=== PATIENT | male | born 1955 | race Caucasian/White ===

== ENCOUNTER 2018-05-09 19:54 | Inpatient (IN) | payer OTHER ==
[2018-05-09] MEDS ORDERED: ONDANSETRON 4 MG INJ IV (23:00)
[2018-05-09] MEDS: DEXAMETHASONE 4 MG/ML 1 ML INJ IV (23:46)
[2018-05-10 05:14] LABS: ADD MAN DIFF? NO
[2018-05-10 05:15] LABS: WHITE BLOOD COUNT 11.6 10^3/ul (4.8-10.8)
[2018-05-10 05:15] LABS: BASOPHILS % 0.2 % (0.0-2.0); EOSINOPHILS % 0.1 % (0.0-7.0); HEMATOCRIT 31.8 % (42.0-52.0); HEMOGLOBIN 9.7 g/dl (14.0-18.0); LYMPHOCYTES # 0.9 10^3/ul (0.8-2.9); LYMPHOCYTES % 7.5 % (15.0-51.0); MEAN CORPUSCULAR HEMOGLOBIN 23.6 pg (29.0-33.0); MEAN CORPUSCULAR HGB CONC 30.5 g/dl (32.0-37.0); MEAN CORPUSCULAR VOLUME 77.4 fl (82.0-101.0); MEAN PLATELET VOLUME 8.7 fl (7.4-10.4); MONOCYTE # 0.2 10^3/ul (0.3-0.9); MONOCYTES % 1.3 % (0.0-11.0); NEUTROPHIL # 10.4 10^3/ul (1.6-7.5); NEUTROPHILS % 89.7 % (39.0-77.0); PLATELET COUNT 452 10^3/UL (140-415); RED BLOOD COUNT 4.11 10^6/ul (4.70-6.10); RED CELL DISTRIBUTION WIDTH 18.1 % (11.5-14.5)
[2018-05-10] MEDS: PANTOPRAZOLE (EC) 40 MG TAB PO (05:29)
[2018-05-10] MEDS: DEXAMETHASONE 4 MG/ML 1 ML INJ IV ×4 (05:29→23:06)
[2018-05-10 05:36] LABS: PARTIAL THROMBOPLASTIN TIME 30.7 Sec (23.0-35.0)
[2018-05-10 05:44] LABS: SODIUM 141 mmol/L (135-144)
[2018-05-10 05:54] LABS: ALANINE AMINOTRANSFERASE 27 IU/L (13-69); ALBUMIN 3.4 g/dl (3.3-4.9); ALBUMIN/GLOBULIN RATIO 0.85; ALKALINE PHOSPHATASE 182 IU/L (42-121); ANION GAP 12 (8-16); ASPARTATE AMINO TRANSFERASE 23 IU/L (15-46); BILIRUBIN,INDIRECT 0.2 mg/dl (0-1.1); BILIRUBIN,TOTAL 0.2 mg/dl (0.2-1.3); BLOOD UREA NITROGEN 34 mg/dl (7-20); CALCIUM 9.7 mg/dl (8.4-10.2); CARBON DIOXIDE 25 mmol/L (21-31); CHLORIDE 108 mmol/L (97-110); CREATININE 1.92 mg/dl (0.61-1.24); GLUCOSE 162 mg/dl (70-220); POTASSIUM 4.3 mmol/L (3.5-5.1); TOTAL PROTEIN 7.4 g/dl (6.1-8.1)
[2018-05-10] MEDS: morphine 2 MG INJ IV ×2 (07:19→23:07)
[2018-05-10] MEDS: METOPROLOL (XL) 25 MG TAB PO ×2 (08:33→21:20)
[2018-05-10] MEDS: AMLODIPINE 10 MG TAB PO (08:33)
[2018-05-10] MEDS ORDERED: ACETAMINOPHEN 325 MG TAB PO (11:00)
[2018-05-10] MEDS: SOD CHLORIDE 0.45% 1,000 ML IV (12:12)
[2018-05-10] MEDS: HYDROCODONE/APAP (5/325) TAB PO ×2 (12:14→21:19)
[2018-05-10 13:14] LABS: SODIUM,URINE RANDOM 75 mmol/L (30-90)
[2018-05-10 13:18] LABS: CREATININE,URINE RANDOM 45.22 mg/dl (20-370); PROTEIN/CREAT RATIO 0.99 RATIO
[2018-05-11 05:04] LABS: ADD MAN DIFF? NO
[2018-05-11 05:06] LABS: BASOPHILS % 0.1 % (0.0-2.0); HEMOGLOBIN 9.2 g/dl (14.0-18.0); LYMPHOCYTES # 1.3 10^3/ul (0.8-2.9); LYMPHOCYTES % 7.2 % (15.0-51.0); MEAN CORPUSCULAR HEMOGLOBIN 23.7 pg (29.0-33.0); MEAN CORPUSCULAR HGB CONC 30.7 g/dl (32.0-37.0); MEAN CORPUSCULAR VOLUME 77.1 fl (82.0-101.0); MEAN PLATELET VOLUME 8.8 fl (7.4-10.4); MONOCYTE # 0.5 10^3/ul (0.3-0.9); MONOCYTES % 2.4 % (0.0-11.0); NEUTROPHIL # 16.5 10^3/ul (1.6-7.5); NEUTROPHILS % 88.5 % (39.0-77.0); NUCLEATED RED BLOOD CELLS% 0.1 /100WBC (0.0-0.0); PLATELET COUNT 438 10^3/UL (140-415); RED BLOOD COUNT 3.89 10^6/ul (4.70-6.10); RED CELL DISTRIBUTION WIDTH 18.3 % (11.5-14.5)
[2018-05-11 05:06] LABS: WHITE BLOOD COUNT 18.6 10^3/ul (4.8-10.8)
[2018-05-11] MEDS: SOD CHLORIDE 0.45% 1,000 ML IV ×2 (05:12→21:38)
[2018-05-11] MEDS: DEXAMETHASONE 4 MG/ML 1 ML INJ IV ×3 (05:13→17:35)
[2018-05-11] MEDS: PANTOPRAZOLE (EC) 40 MG TAB PO (05:13)
[2018-05-11] MEDS: HYDROCODONE/APAP (5/325) TAB PO ×3 (05:14→21:40)
[2018-05-11 05:23] LABS: INR 1.02; PROTIME 13.5 Sec (11.9-14.9); PT RATIO 1.1
[2018-05-11 05:25] LABS: URIC ACID 7.1 mg/dl (3.1-7.9)
[2018-05-11 05:28] LABS: PARTIAL THROMBOPLASTIN TIME 26.2 Sec (23.0-35.0)
[2018-05-11 05:33] LABS: CREATINE KINASE < 20 IU/L (23-200)
[2018-05-11 05:37] LABS: ANION GAP 14 (8-16); BLOOD UREA NITROGEN 41 mg/dl (7-20); CALCIUM 9.6 mg/dl (8.4-10.2); CARBON DIOXIDE 24 mmol/L (21-31); CHLORIDE 105 mmol/L (97-110); CREATININE 1.62 mg/dl (0.61-1.24); GLUCOSE 146 mg/dl (70-220); POTASSIUM 4.5 mmol/L (3.5-5.1); SODIUM 138 mmol/L (135-144)
[2018-05-11] MEDS: METOPROLOL (XL) 25 MG TAB PO ×2 (09:22→21:33)
[2018-05-11] MEDS: AMLODIPINE 10 MG TAB PO (09:22)
[2018-05-12] MEDS: DEXAMETHASONE 4 MG/ML 1 ML INJ IV ×5 (00:22→23:00)
[2018-05-12] MEDS: morphine 2 MG INJ IV ×2 (00:22→23:03)
[2018-05-12 05:26] LABS: ADD MAN DIFF? NO
[2018-05-12 05:32] LABS: BASOPHILS % 0.1 % (0.0-2.0); HEMATOCRIT 30.4 % (42.0-52.0); HEMOGLOBIN 9.4 g/dl (14.0-18.0); LYMPHOCYTES # 1.3 10^3/ul (0.8-2.9); MEAN CORPUSCULAR HEMOGLOBIN 23.9 pg (29.0-33.0); MEAN CORPUSCULAR HGB CONC 30.9 g/dl (32.0-37.0); MEAN CORPUSCULAR VOLUME 77.2 fl (82.0-101.0); MEAN PLATELET VOLUME 9.1 fl (7.4-10.4); MONOCYTE # 0.4 10^3/ul (0.3-0.9); MONOCYTES % 2.6 % (0.0-11.0); NEUTROPHIL # 12.3 10^3/ul (1.6-7.5); NEUTROPHILS % 85.4 % (39.0-77.0); NUCLEATED RED BLOOD CELLS # 0.1 10^3/ul (0.0-0.0); NUCLEATED RED BLOOD CELLS% 0.6 /100WBC (0.0-0.0); PLATELET COUNT 477 10^3/UL (140-415); RED BLOOD COUNT 3.94 10^6/ul (4.70-6.10)
[2018-05-12 05:32] LABS: WHITE BLOOD COUNT 14.4 10^3/ul (4.8-10.8)
[2018-05-12 05:42] LABS: ANION GAP 13 (8-16); BLOOD UREA NITROGEN 51 mg/dl (7-20); CALCIUM 9.6 mg/dl (8.4-10.2); CARBON DIOXIDE 22 mmol/L (21-31); CHLORIDE 105 mmol/L (97-110); CREATININE 1.57 mg/dl (0.61-1.24); GLUCOSE 156 mg/dl (70-220); POTASSIUM 4.4 mmol/L (3.5-5.1); SODIUM 136 mmol/L (135-144)
[2018-05-12] MEDS: PANTOPRAZOLE (EC) 40 MG TAB PO (06:08)
[2018-05-12] MEDS: HYDROCODONE/APAP (5/325) TAB PO ×3 (06:13→21:50)
[2018-05-12] MEDS: AMLODIPINE 10 MG TAB PO (09:04)
[2018-05-12] MEDS: METOPROLOL (XL) 25 MG TAB PO ×2 (09:05→21:50)
[2018-05-12] MEDS: SOD CHLORIDE 0.45% 1,000 ML IV (14:57)
[2018-05-13] MEDS: morphine 2 MG INJ IV ×3 (01:32→11:39)
[2018-05-13 04:52] LABS: ADD MAN DIFF? NO
[2018-05-13 04:56] LABS: WHITE BLOOD COUNT 15.4 10^3/ul (4.8-10.8)
[2018-05-13 04:56] LABS: ABNORMAL IP MESSAGE 1; BASOPHILS % 0.3 % (0.0-2.0); HEMATOCRIT 30.5 % (42.0-52.0); HEMOGLOBIN 9.7 g/dl (14.0-18.0); LYMPHOCYTES # 1.6 10^3/ul (0.8-2.9); LYMPHOCYTES % 10.6 % (15.0-51.0); MEAN CORPUSCULAR HEMOGLOBIN 24.2 pg (29.0-33.0); MEAN CORPUSCULAR HGB CONC 31.8 g/dl (32.0-37.0); MEAN CORPUSCULAR VOLUME 76.1 fl (82.0-101.0); MEAN PLATELET VOLUME 8.8 fl (7.4-10.4); MONOCYTE # 0.7 10^3/ul (0.3-0.9); MONOCYTES % 4.6 % (0.0-11.0); NEUTROPHIL # 12.1 10^3/ul (1.6-7.5); NEUTROPHILS % 78.4 % (39.0-77.0); NUCLEATED RED BLOOD CELLS # 0.2 10^3/ul (0.0-0.0); PLATELET COUNT 451 10^3/UL (140-415); POSITIVE DIFF @See below; RED BLOOD COUNT 4.01 10^6/ul (4.70-6.10); RED CELL DISTRIBUTION WIDTH 17.4 % (11.5-14.5)
[2018-05-13 05:23] LABS: ANION GAP 14 (8-16); BLOOD UREA NITROGEN 58 mg/dl (7-20); CALCIUM 9.2 mg/dl (8.4-10.2); CARBON DIOXIDE 23 mmol/L (21-31); CHLORIDE 103 mmol/L (97-110); CREATININE 1.56 mg/dl (0.61-1.24); GLUCOSE 194 mg/dl (70-220); POTASSIUM 4.5 mmol/L (3.5-5.1); SODIUM 135 mmol/L (135-144)
[2018-05-13] MEDS: DEXAMETHASONE 4 MG/ML 1 ML INJ IV ×4 (05:29→23:42)
[2018-05-13] MEDS: PANTOPRAZOLE (EC) 40 MG TAB PO (05:31)
[2018-05-13] MEDS: SOD CHLORIDE 0.45% 1,000 ML IV (05:31)
[2018-05-13] MEDS: HYDROCODONE/APAP (5/325) TAB PO ×3 (05:31→21:41)
[2018-05-13] MEDS ORDERED: HEPARIN 1000 UNITS/ML 10 ML INJ ×2 (06:56→06:57)
[2018-05-13] MEDS: CEFAZOLIN 1 GM INJ (06:56)
[2018-05-13] MEDS: SURGIFOAM POWDER 1 GM KIT (06:56)
[2018-05-13] MEDS: THROMBIN 5000 UNIT VIAL (06:56)
[2018-05-13] MEDS: GELATIN SIZE 100 SPONGE (06:57)
[2018-05-13] MEDS ORDERED: DEXAMETHASONE 4 MG/ML 1 ML INJ (07:00)
[2018-05-13] MEDS ORDERED: ONDANSETRON 4 MG INJ (07:00)
[2018-05-13] MEDS ORDERED: PROPOFOL 20 ML (07:44)
[2018-05-13] MEDS ORDERED: EPHEDrine SULFATE 50 MG/5 ML SYG (07:48)
[2018-05-13] MEDS ORDERED: ROCURONIUM 50 MG INJ (07:48)
[2018-05-13] MEDS ORDERED: LIDOCAINE 2% (SDV) 5 ML INJ (07:48)
[2018-05-13] MEDS ORDERED: CEFAZOLIN 1 GM/50 ML (PMX) 50 ML IVPB (08:30)
[2018-05-13] MEDS ORDERED: NALOXONE (0.4 MG/ML) INJ IV (08:30)
[2018-05-13] MEDS ORDERED: NACL 0.9% 3 ML SYG IV (08:30)
[2018-05-13] MEDS ORDERED: HYDROmorphONE 0.2 MG/ML PCA IV (08:30)
[2018-05-13] MEDS ORDERED: HYDROCODONE/APAP (5/325) TAB PO ×2 (08:30→14:00)
[2018-05-13] MEDS ORDERED: THROMBIN 5000 UNIT VIAL ×2 (09:07→09:12)
[2018-05-13] MEDS ORDERED: GELATIN SIZE 100 SPONGE (09:12)
[2018-05-13] MEDS ORDERED: SUGAMMADEX SODIUM 200 MG/2 ML VIAL IV (09:22)
[2018-05-13] MEDS ORDERED: CEFAZOLIN 1 GM INJ (09:35)
[2018-05-13] MEDS ORDERED: DIPHENHYDRAMINE 50 MG INJ IV (10:00)
[2018-05-13] MEDS ORDERED: OXYCODONE/ACETAMINOPHEN (5/325) TAB PO ×2 (10:00)
[2018-05-13] MEDS ORDERED: METOCLOPRAMIDE 10 MG INJ IV (10:00)
[2018-05-13] MEDS ORDERED: HYDROmorphONE 1 MG/5 ML IV SYRINGE IV ×3 (10:00)
[2018-05-13] MEDS ORDERED: KETOROLAC 30 MG INJ IV (10:00)
[2018-05-13] MEDS ORDERED: ALBUTEROL 0.083% (NEB) 2.5 MG/3 ML AMP HHN (10:00)
[2018-05-13] MEDS ORDERED: hydrALAzine 20 MG INJ IV (10:00)
[2018-05-13] MEDS ORDERED: MEPERIDINE 25 MG INJ IV (10:00)
[2018-05-13] MEDS ORDERED: EPHEDrine SULFATE 50 MG/5 ML SYG IV (10:00)
[2018-05-13] MEDS ORDERED: FENTAnyl 50 MCG/ML VIAL IV ×3 (10:00)
[2018-05-13] MEDS ORDERED: LABETALOL HCL 20MG INJ IV (10:00)
[2018-05-13] MEDS ORDERED: ONDANSETRON 4 MG INJ IV (10:00)
[2018-05-13] MEDS: NS + KCL 20 MEQ 1,000 ML IV ×3 (10:58→21:43)
[2018-05-13] MEDS: AMLODIPINE 10 MG TAB PO (11:38)
[2018-05-13] MEDS: METOPROLOL (XL) 25 MG TAB PO ×2 (11:38→21:41)
[2018-05-14] MEDS: morphine 2 MG INJ IV ×2 (00:53→23:30)
[2018-05-14 05:01] LABS: ADD MAN DIFF? NO
[2018-05-14 05:10] LABS: WHITE BLOOD COUNT 17.6 10^3/ul (4.8-10.8)
[2018-05-14 05:10] LABS: ABNORMAL IP MESSAGE 1; BASOPHILS % 0.2 % (0.0-2.0); HEMATOCRIT 30.6 % (42.0-52.0); HEMOGLOBIN 9.4 g/dl (14.0-18.0); LYMPHOCYTES # 1.5 10^3/ul (0.8-2.9); LYMPHOCYTES % 8.2 % (15.0-51.0); MEAN CORPUSCULAR HEMOGLOBIN 23.6 pg (29.0-33.0); MEAN CORPUSCULAR HGB CONC 30.7 g/dl (32.0-37.0); MEAN CORPUSCULAR VOLUME 76.7 fl (82.0-101.0); MEAN PLATELET VOLUME 8.7 fl (7.4-10.4); MONOCYTE # 1.2 10^3/ul (0.3-0.9); MONOCYTES % 6.6 % (0.0-11.0); NEUTROPHIL # 14.1 10^3/ul (1.6-7.5); NEUTROPHILS % 79.8 % (39.0-77.0); NUCLEATED RED BLOOD CELLS # 0.2 10^3/ul (0.0-0.0); NUCLEATED RED BLOOD CELLS% 1.3 /100WBC (0.0-0.0); PLATELET COUNT 445 10^3/UL (140-415); POSITIVE DIFF @See below; RED BLOOD COUNT 3.99 10^6/ul (4.70-6.10); RED CELL DISTRIBUTION WIDTH 17.7 % (11.5-14.5)
[2018-05-14 05:34] LABS: ANION GAP 10 (8-16); BLOOD UREA NITROGEN 47 mg/dl (7-20); CALCIUM 8.8 mg/dl (8.4-10.2); CARBON DIOXIDE 24 mmol/L (21-31); CHLORIDE 108 mmol/L (97-110); CREATININE 1.36 mg/dl (0.61-1.24); GLUCOSE 162 mg/dl (70-220); POTASSIUM 4.9 mmol/L (3.5-5.1); SODIUM 137 mmol/L (135-144)
[2018-05-14] MEDS: PANTOPRAZOLE (EC) 40 MG TAB PO (05:50)
[2018-05-14] MEDS: HYDROCODONE/APAP (5/325) TAB PO ×3 (05:50→21:37)
[2018-05-14] MEDS: DEXAMETHASONE 4 MG/ML 1 ML INJ IV ×3 (05:50→18:46)
[2018-05-14] MEDS: NS + KCL 20 MEQ 1,000 ML IV ×2 (09:11→18:46)
[2018-05-14] MEDS: METOPROLOL (XL) 25 MG TAB PO ×2 (09:13→21:39)
[2018-05-14] MEDS: AMLODIPINE 10 MG TAB PO (09:13)
[2018-05-15] MEDS: DEXAMETHASONE 4 MG/ML 1 ML INJ IV ×4 (00:03→18:00)
[2018-05-15] MEDS: morphine 2 MG INJ IV ×2 (04:17→19:25)
[2018-05-15] MEDS: NS + KCL 20 MEQ 1,000 ML IV ×3 (05:02→20:24)
[2018-05-15 05:06] LABS: WHITE BLOOD COUNT 22.3 10^3/ul (4.8-10.8)
[2018-05-15 05:06] LABS: ABNORMAL IP MESSAGE 1; HEMATOCRIT 30.7 % (42.0-52.0); HEMOGLOBIN 9.5 g/dl (14.0-18.0); MEAN CORPUSCULAR HEMOGLOBIN 23.7 pg (29.0-33.0); MEAN CORPUSCULAR HGB CONC 30.9 g/dl (32.0-37.0); MEAN CORPUSCULAR VOLUME 76.6 fl (82.0-101.0); MEAN PLATELET VOLUME 8.8 fl (7.4-10.4); PLATELET COUNT 449 10^3/UL (140-415); POSITIVE DIFF @See below; RED BLOOD COUNT 4.01 10^6/ul (4.70-6.10); RED CELL DISTRIBUTION WIDTH 18.2 % (11.5-14.5)
[2018-05-15] MEDS: PANTOPRAZOLE (EC) 40 MG TAB PO (05:33)
[2018-05-15] MEDS: HYDROCODONE/APAP (5/325) TAB PO ×3 (05:33→21:42)
[2018-05-15 05:44] LABS: ANION GAP 11 (8-16); BLOOD UREA NITROGEN 48 mg/dl (7-20); CALCIUM 8.6 mg/dl (8.4-10.2); CARBON DIOXIDE 23 mmol/L (21-31); CHLORIDE 106 mmol/L (97-110); CREATININE 1.26 mg/dl (0.61-1.24); GLUCOSE 205 mg/dl (70-220); POTASSIUM 4.9 mmol/L (3.5-5.1); SODIUM 135 mmol/L (135-144)
[2018-05-15 05:45] LABS: ADD MAN DIFF? YES
[2018-05-15] MEDS ORDERED: THROMBIN 5000 UNIT VIAL (06:40)
[2018-05-15] MEDS ORDERED: GELATIN SIZE 100 SPONGE (06:40)
[2018-05-15 06:41] LABS: ANISOCYTOSIS 1+ (0-0); BAND NEUTROPHILS % (M) 9 % (0-4); ERYTHROBLAST% (NRBC) (M) 2 % (0-0); LYMPHOCYTES #M 1.3 10^3/ul (0.8-2.9); LYMPHOCYTES % (M) 6 % (15-51); MICROCYTOSIS 1+ (0-0); MONOCYTE #M 1.3 10^3/ul (0.3-0.9); MONOCYTES % (M) 6 % (0-11); MYELOCYTES #M 0.8 10^3/ul (0.0-0.0); MYELOCYTES % (M) 4 % (0-0); PLATELET ESTIMATE NORMAL; POIKILOCYTOSIS 1+ (0-0); POLYCHROMASIA 2+ (0-0); SEG NEUT #M 17.2 10^3/ul (1.6-7.5); SEGMENTED NEUTROPHILS (M) % 75 % (39-77); SMUDGE%M 18 % (0-0); SPHEROCYTES 1+ (0-0)
[2018-05-15] MEDS: ROPIVACAINE 0.5 % 30 ML VIAL ×2 (06:41→12:46)
[2018-05-15] MEDS: POLYMYXIN/BACITRACIN 1L IRRIG (06:41)
[2018-05-15] MEDS ORDERED: DEXAMETHASONE 4 MG/ML 1 ML INJ (07:00)
[2018-05-15] MEDS ORDERED: ONDANSETRON 4 MG INJ (07:00)
[2018-05-15] MEDS ORDERED: ROCURONIUM 50 MG INJ (07:00)
[2018-05-15] MEDS ORDERED: CEFAZOLIN 1 GM INJ (07:00)
[2018-05-15] MEDS ORDERED: LIDOCAINE 2% (SDV) 5 ML INJ (07:00)
[2018-05-15] MEDS ORDERED: PROPOFOL 20 ML (07:39)
[2018-05-15] MEDS: AMLODIPINE 10 MG TAB PO (09:00)
[2018-05-15] MEDS: METOPROLOL (XL) 25 MG TAB PO ×2 (09:00→21:41)
[2018-05-15] MEDS ORDERED: morphine 10 MG INJ (10:54)
[2018-05-15] MEDS ORDERED: PHENYLephrine (100 MCG/ML) 5ML SYG (12:39)
[2018-05-15] MEDS ORDERED: SUGAMMADEX SODIUM 200 MG/2 ML VIAL IV (12:56)
[2018-05-15] MEDS ORDERED: DIPHENHYDRAMINE 50 MG INJ IV (13:30)
[2018-05-15] MEDS ORDERED: HYDROmorphONE 0.5 MG/0.5 ML SYG IV ×3 (13:30)
[2018-05-15] MEDS ORDERED: ALBUTEROL 0.083% (NEB) 2.5 MG/3 ML AMP HHN (13:30)
[2018-05-15] MEDS ORDERED: MIDAZOLAM 1 MG/ML 2 ML INJ IV (13:30)
[2018-05-15] MEDS ORDERED: ONDANSETRON 4 MG INJ IV (13:30)
[2018-05-15] MEDS ORDERED: LABETALOL HCL 20MG INJ IV (13:30)
[2018-05-15] MEDS ORDERED: MEPERIDINE 25 MG INJ IV (13:30)
[2018-05-15] MEDS ORDERED: METOCLOPRAMIDE 10 MG INJ IV (13:30)
[2018-05-15] MEDS ORDERED: hydrALAzine 20 MG INJ IV (13:30)
[2018-05-15] MEDS ORDERED: EPHEDrine SULFATE 50 MG/5 ML SYG IV (13:30)
[2018-05-15] MEDS: CEFAZOLIN 2 GM/50 ML (PMX) 50 ML IVPB ×2 (14:00→21:41)
[2018-05-15] MEDS: HYDROmorphONE 1 MG/ML SYG IV ×2 (14:35→17:00)
[2018-05-16] MEDS: HYDROmorphONE 1 MG/ML SYG IV (00:35)
[2018-05-16] MEDS: NS + KCL 20 MEQ 1,000 ML IV (04:41)
[2018-05-16] MEDS: HYDROCODONE/APAP (5/325) TAB PO ×3 (05:01→21:01)
[2018-05-16] MEDS: DEXAMETHASONE 4 MG/ML 1 ML INJ IV ×3 (05:01→12:36)
[2018-05-16] MEDS: CEFAZOLIN 2 GM/50 ML (PMX) 50 ML IVPB ×3 (05:01→23:10)
[2018-05-16] MEDS: PANTOPRAZOLE (EC) 40 MG TAB PO (05:01)
[2018-05-16] MEDS: morphine 2 MG INJ IV ×2 (09:41→18:16)
[2018-05-16] MEDS: METOPROLOL (XL) 25 MG TAB PO ×2 (09:42→20:59)
[2018-05-16] MEDS: AMLODIPINE 10 MG TAB PO (09:42)
[2018-05-16] MEDS ORDERED: GLUCOSE GEL 15 GRAM TUBE BUCCAL (13:30)
[2018-05-16] MEDS ORDERED: GLUCAGON 1 MG INJ IM (13:30)
[2018-05-16] MEDS ORDERED: DEXTROSE 50% 50 ML SYRINGE IV ×2 (13:30)
[2018-05-16] MEDS ORDERED: GLUCOSE GEL 15 GRAM TUBE PO ×2 (13:30)
[2018-05-16 14:49] LABS: HEMOGLOBIN A1C 5.6 % (0-5.9)
[2018-05-16] MEDS: INSULIN ASPART [NOVOLOG] 3 ML PEN SC ×2 (17:36→20:58)
[2018-05-16] MEDS: DEXAMETHASONE 4 MG TAB PO (18:15)
[2018-05-17] MEDS: morphine 2 MG INJ IV ×3 (00:28→17:12)
[2018-05-17 04:56] LABS: ADD MAN DIFF? NO
[2018-05-17 04:57] LABS: ABNORMAL IP MESSAGE 1; BASOPHILS % 0.1 % (0.0-2.0); HEMATOCRIT 19.4 % (42.0-52.0); LYMPHOCYTES # 1.9 10^3/ul (0.8-2.9); LYMPHOCYTES % 7.7 % (15.0-51.0); MEAN CORPUSCULAR HEMOGLOBIN 24.3 pg (29.0-33.0); MEAN CORPUSCULAR HGB CONC 31.4 g/dl (32.0-37.0); MEAN CORPUSCULAR VOLUME 77.3 fl (82.0-101.0); MEAN PLATELET VOLUME 9.2 fl (7.4-10.4); MONOCYTE # 1.8 10^3/ul (0.3-0.9); MONOCYTES % 7.2 % (0.0-11.0); NEUTROPHIL # 19.4 10^3/ul (1.6-7.5); NEUTROPHILS % 77.6 % (39.0-77.0); NUCLEATED RED BLOOD CELLS # 0.3 10^3/ul (0.0-0.0); NUCLEATED RED BLOOD CELLS% 1.3 /100WBC (0.0-0.0); PLATELET COUNT 321 10^3/UL (140-415); POSITIVE DIFF @See below; RED BLOOD COUNT 2.51 10^6/ul (4.70-6.10); RED CELL DISTRIBUTION WIDTH 18.6 % (11.5-14.5)
[2018-05-17 05:18] LABS: ANION GAP 10 (8-16); BLOOD UREA NITROGEN 49 mg/dl (7-20); CALCIUM 8.1 mg/dl (8.4-10.2); CARBON DIOXIDE 23 mmol/L (21-31); CHLORIDE 105 mmol/L (97-110); CREATININE 1.29 mg/dl (0.61-1.24); GLUCOSE 182 mg/dl (70-220); POTASSIUM 4.9 mmol/L (3.5-5.1); SODIUM 133 mmol/L (135-144)
[2018-05-17] MEDS: PANTOPRAZOLE (EC) 40 MG TAB PO (05:19)
[2018-05-17] MEDS: HYDROCODONE/APAP (5/325) TAB PO ×3 (05:20→22:02)
[2018-05-17] MEDS: CEFAZOLIN 2 GM/50 ML (PMX) 50 ML IVPB ×3 (05:20→22:03)
[2018-05-17 05:26] LABS: HEMOGLOBIN 6.1 g/dl (14.0-18.0)
[2018-05-17] MEDS: DEXAMETHASONE 4 MG TAB PO ×2 (08:56→17:11)
[2018-05-17] MEDS: AMLODIPINE 10 MG TAB PO (08:57)
[2018-05-17] MEDS: METOPROLOL (XL) 25 MG TAB PO ×2 (08:57→20:15)
[2018-05-17] MEDS: INSULIN ASPART [NOVOLOG] 3 ML PEN SC ×4 (08:59→20:20)
[2018-05-17 09:33] LABS: ANISOCYTOSIS 1+ (0-0); BAND NEUTROPHILS % (M) 4 % (0-4); HYPOCHROMASIA 1+ (0-0); LYMPHOCYTES #M 1.2 10^3/ul (0.8-2.9); LYMPHOCYTES % (M) 5 % (15-51); METAMYELOCYTES #M 0.2 10^3/ul (0.0-0.0); METAMYELOCYTES %M 1 % (0-0); MICROCYTOSIS 1+ (0-0); MONOCYTES % (M) 4 % (0-11); OVALOCYTES 1+ (0-0); PLATELET ESTIMATE NORMAL; POIKILOCYTOSIS 1+ (0-0); POLYCHROMASIA 2+ (0-0); SEG NEUT #M 21.8 10^3/ul (1.6-7.5); SEGMENTED NEUTROPHILS (M) % 86 % (39-77); SMUDGE%M 3 % (0-0)
[2018-05-17 14:45] LABS: IMMEDIATE SPIN CROSSMATCH 1 2
[2018-05-17] MEDS ORDERED: SOD CHLORIDE 0.9% 1,000 ML IV (17:30)
[2018-05-18] MEDS: morphine 2 MG INJ IV ×3 (00:26→16:02)
[2018-05-18] MEDS: HYDROmorphONE 1 MG/ML SYG IV ×2 (01:48→21:12)
[2018-05-18 05:18] LABS: WHITE BLOOD COUNT 28.5 10^3/ul (4.8-10.8)
[2018-05-18 05:19] LABS: ABNORMAL IP MESSAGE 1; HEMATOCRIT 26.5 % (42.0-52.0); HEMOGLOBIN 8.6 g/dl (14.0-18.0); MEAN CORPUSCULAR HEMOGLOBIN 26.3 pg (29.0-33.0); MEAN CORPUSCULAR HGB CONC 32.5 g/dl (32.0-37.0); MEAN PLATELET VOLUME 9.3 fl (7.4-10.4); NUCLEATED RED BLOOD CELLS% 1.7 /100WBC (0.0-0.0); PLATELET COUNT 319 10^3/UL (140-415); POSITIVE DIFF @See below; RED BLOOD COUNT 3.27 10^6/ul (4.70-6.10); RED CELL DISTRIBUTION WIDTH 18.5 % (11.5-14.5)
[2018-05-18 05:25] LABS: ADD MAN DIFF? YES
[2018-05-18] MEDS: CEFAZOLIN 2 GM/50 ML (PMX) 50 ML IVPB ×3 (05:35→21:05)
[2018-05-18] MEDS: HYDROCODONE/APAP (5/325) TAB PO ×3 (05:35→21:26)
[2018-05-18] MEDS: PANTOPRAZOLE (EC) 40 MG TAB PO (05:35)
[2018-05-18 05:59] LABS: ANION GAP 15 (8-16); BLOOD UREA NITROGEN 52 mg/dl (7-20); CALCIUM 8.4 mg/dl (8.4-10.2); CARBON DIOXIDE 24 mmol/L (21-31); CHLORIDE 101 mmol/L (97-110); CREATININE 1.15 mg/dl (0.61-1.24); GLUCOSE 224 mg/dl (70-220); POTASSIUM 4.8 mmol/L (3.5-5.1); SODIUM 135 mmol/L (135-144)
[2018-05-18 07:07] LABS: ANISOCYTOSIS 1+ (0-0); BAND NEUTROPHILS #M 1.4 10^3/ul (0.0-0.6); BAND NEUTROPHILS % (M) 5 % (0-4); DIMORPHIC RBC 1+ (0-0); ERYTHROBLAST% (NRBC) (M) 5 % (0-0); HYPOCHROMASIA 1+ (0-0); LYMPHOCYTES #M 0.5 10^3/ul (0.8-2.9); LYMPHOCYTES % (M) 2 % (15-51); METAMYELOCYTES #M 0.2 10^3/ul (0.0-0.0); METAMYELOCYTES %M 1 % (0-0); MICROCYTOSIS 1+ (0-0); MONOCYTE #M 1.1 10^3/ul (0.3-0.9); MONOCYTES % (M) 4 % (0-11); OVALOCYTES 1+ (0-0); PLATELET ESTIMATE NORMAL; POLYCHROMASIA 1+ (0-0); SEG NEUT #M 25.5 10^3/ul (1.6-7.5); SEGMENTED NEUTROPHILS (M) % 88 % (39-77); SMUDGE%M 8 % (0-0)
[2018-05-18] MEDS: METOPROLOL (XL) 25 MG TAB PO ×2 (08:22→21:08)
[2018-05-18] MEDS: AMLODIPINE 10 MG TAB PO (08:23)
[2018-05-18] MEDS: DEXAMETHASONE 4 MG TAB PO (08:23)
[2018-05-18] MEDS: INSULIN ASPART [NOVOLOG] 3 ML PEN SC ×4 (08:45→21:24)
[2018-05-18] MEDS: DEXAMETHASONE 1 MG TAB PO (17:52)
[2018-05-19] MEDS: HYDROmorphONE 1 MG/ML SYG IV ×2 (00:17→03:19)
[2018-05-19 05:11] LABS: ABNORMAL IP MESSAGE 1; HEMATOCRIT 26.1 % (42.0-52.0); HEMOGLOBIN 8.7 g/dl (14.0-18.0); MEAN CORPUSCULAR HGB CONC 33.3 g/dl (32.0-37.0); MEAN CORPUSCULAR VOLUME 81.1 fl (82.0-101.0); MEAN PLATELET VOLUME 9.1 fl (7.4-10.4); NUCLEATED RED BLOOD CELLS% 1.5 /100WBC (0.0-0.0); PLATELET COUNT 308 10^3/UL (140-415); POSITIVE DIFF @See below; RED BLOOD COUNT 3.22 10^6/ul (4.70-6.10); RED CELL DISTRIBUTION WIDTH 18.5 % (11.5-14.5)
[2018-05-19 05:33] LABS: ADD MAN DIFF? YES
[2018-05-19 05:44] LABS: ANION GAP 10 (8-16); BLOOD UREA NITROGEN 52 mg/dl (7-20); CALCIUM 8.4 mg/dl (8.4-10.2); CARBON DIOXIDE 27 mmol/L (21-31); CHLORIDE 102 mmol/L (97-110); CREATININE 1.16 mg/dl (0.61-1.24); GLUCOSE 147 mg/dl (70-220); POTASSIUM 4.9 mmol/L (3.5-5.1); SODIUM 134 mmol/L (135-144)
[2018-05-19] MEDS: HYDROCODONE/APAP (5/325) TAB PO ×3 (06:22→20:48)
[2018-05-19] MEDS: PANTOPRAZOLE (EC) 40 MG TAB PO (06:22)
[2018-05-19] MEDS: CEFAZOLIN 2 GM/50 ML (PMX) 50 ML IVPB (06:22)
[2018-05-19 07:11] LABS: ANISOCYTOSIS 1+ (0-0); BAND NEUTROPHILS #M 2.1 10^3/ul (0.0-0.6); BAND NEUTROPHILS % (M) 7 % (0-4); ERYTHROBLAST% (NRBC) (M) 2 % (0-0); LYMPHOCYTES #M 2.1 10^3/ul (0.8-2.9); LYMPHOCYTES % (M) 7 % (15-51); METAMYELOCYTES #M 0.6 10^3/ul (0.0-0.0); METAMYELOCYTES %M 2 % (0-0); MONOCYTE #M 1.5 10^3/ul (0.3-0.9); MONOCYTES % (M) 5 % (0-11); MYELOCYTES #M 0.9 10^3/ul (0.0-0.0); MYELOCYTES % (M) 3 % (0-0); OVALOCYTES 1+ (0-0); PLATELET ESTIMATE NORMAL; POIKILOCYTOSIS 1+ (0-0); POLYCHROMASIA 1+ (0-0); SEG NEUT #M 24.2 10^3/ul (1.6-7.5); SEGMENTED NEUTROPHILS (M) % 76 % (39-77); SMUDGE%M 3 % (0-0)
[2018-05-19] MEDS: DEXAMETHASONE 1 MG TAB PO ×2 (08:55→17:49)
[2018-05-19] MEDS: INSULIN ASPART [NOVOLOG] 3 ML PEN SC ×4 (08:57→20:45)
[2018-05-19] MEDS: AMLODIPINE 10 MG TAB PO (08:57)
[2018-05-19] MEDS: METOPROLOL (XL) 25 MG TAB PO ×2 (08:58→20:39)
[2018-05-19] MEDS: morphine 2 MG INJ IV ×2 (16:33→23:22)
[2018-05-20] MEDS: HYDROmorphONE 1 MG/ML SYG IV ×3 (01:36→20:56)
[2018-05-20] MEDS: HYDROCODONE/APAP (5/325) TAB PO ×3 (05:58→23:13)
[2018-05-20] MEDS: PANTOPRAZOLE (EC) 40 MG TAB PO (05:58)
[2018-05-20] MEDS: INSULIN ASPART [NOVOLOG] 3 ML PEN SC ×4 (08:38→21:04)
[2018-05-20] MEDS: METOPROLOL (XL) 25 MG TAB PO ×2 (08:46→21:02)
[2018-05-20] MEDS: AMLODIPINE 10 MG TAB PO (08:46)
[2018-05-20] MEDS: DEXAMETHASONE 1 MG TAB PO (09:35)
[2018-05-20 12:37] LABS: ABNORMAL IP MESSAGE 1; HEMATOCRIT 29.1 % (42.0-52.0); HEMOGLOBIN 9.2 g/dl (14.0-18.0); MEAN CORPUSCULAR HEMOGLOBIN 26.4 pg (29.0-33.0); MEAN CORPUSCULAR HGB CONC 31.6 g/dl (32.0-37.0); MEAN CORPUSCULAR VOLUME 83.4 fl (82.0-101.0); MEAN PLATELET VOLUME 9.2 fl (7.4-10.4); PLATELET COUNT 381 10^3/UL (140-415); POSITIVE DIFF @See below; RED BLOOD COUNT 3.49 10^6/ul (4.70-6.10); RED CELL DISTRIBUTION WIDTH 19.6 % (11.5-14.5)
[2018-05-20 12:37] LABS: WHITE BLOOD COUNT 34.8 10^3/ul (4.8-10.8)
[2018-05-20 12:40] LABS: ADD MAN DIFF? YES
[2018-05-20 12:56] LABS: ANION GAP 14 (8-16); BLOOD UREA NITROGEN 67 mg/dl (7-20); CALCIUM 8.6 mg/dl (8.4-10.2); CARBON DIOXIDE 23 mmol/L (21-31); CHLORIDE 102 mmol/L (97-110); GLUCOSE 133 mg/dl (70-220); POTASSIUM 4.5 mmol/L (3.5-5.1); SODIUM 134 mmol/L (135-144)
[2018-05-20 14:19] LABS: ANISOCYTOSIS 1+ (0-0); BAND NEUTROPHILS % (M) 6 % (0-4); EOSINOPHILS % (M) 1 % (0-7); ERYTHROBLAST% (NRBC) (M) 5 % (0-0); LYMPHOCYTES #M 3.1 10^3/ul (0.8-2.9); LYMPHOCYTES % (M) 9 % (15-51); METAMYELOCYTES #M 0.6 10^3/ul (0.0-0.0); METAMYELOCYTES %M 2 % (0-0); MONOCYTE #M 2.4 10^3/ul (0.3-0.9); MONOCYTES % (M) 7 % (0-11); MYELOCYTES #M 1.7 10^3/ul (0.0-0.0); MYELOCYTES % (M) 5 % (0-0); PLATELET ESTIMATE NORMAL; POLYCHROMASIA 2+ (0-0); SEG NEUT #M 25.1 10^3/ul (1.6-7.5); SEGMENTED NEUTROPHILS (M) % 70 % (39-77); SMUDGE%M 40 % (0-0)
[2018-05-20] MEDS: DEXAMETHASONE 2 MG TAB PO (17:48)
[2018-05-21] MEDS: HYDROmorphONE 1 MG/ML SYG IV ×3 (01:18→19:47)
[2018-05-21 05:17] LABS: WHITE BLOOD COUNT 29.3 10^3/ul (4.8-10.8)
[2018-05-21 05:17] LABS: ABNORMAL IP MESSAGE 1; HEMATOCRIT 27.3 % (42.0-52.0); HEMOGLOBIN 8.6 g/dl (14.0-18.0); MEAN CORPUSCULAR HEMOGLOBIN 26.4 pg (29.0-33.0); MEAN CORPUSCULAR HGB CONC 31.5 g/dl (32.0-37.0); MEAN CORPUSCULAR VOLUME 83.7 fl (82.0-101.0); MEAN PLATELET VOLUME 9.2 fl (7.4-10.4); NUCLEATED RED BLOOD CELLS% 1.6 /100WBC (0.0-0.0); PLATELET COUNT 355 10^3/UL (140-415); POSITIVE DIFF @See below; RED BLOOD COUNT 3.26 10^6/ul (4.70-6.10); RED CELL DISTRIBUTION WIDTH 19.2 % (11.5-14.5)
[2018-05-21 05:22] LABS: ADD MAN DIFF? YES
[2018-05-21 05:49] LABS: ANION GAP 12 (8-16); BLOOD UREA NITROGEN 59 mg/dl (7-20); CALCIUM 8.4 mg/dl (8.4-10.2); CARBON DIOXIDE 21 mmol/L (21-31); CHLORIDE 108 mmol/L (97-110); CREATININE 1.04 mg/dl (0.61-1.24); GLUCOSE 155 mg/dl (70-220); POTASSIUM 4.5 mmol/L (3.5-5.1); SODIUM 136 mmol/L (135-144)
[2018-05-21] MEDS: PANTOPRAZOLE (EC) 40 MG TAB PO (06:08)
[2018-05-21] MEDS: HYDROCODONE/APAP (5/325) TAB PO ×3 (06:08→21:36)
[2018-05-21] MEDS: INSULIN ASPART [NOVOLOG] 3 ML PEN SC ×4 (08:30→21:38)
[2018-05-21] MEDS: DEXAMETHASONE 2 MG TAB PO ×2 (08:47→17:52)
[2018-05-21] MEDS: METOPROLOL (XL) 25 MG TAB PO ×2 (08:47→21:36)
[2018-05-21] MEDS: AMLODIPINE 10 MG TAB PO (08:47)
[2018-05-21 09:03] LABS: ANISOCYTOSIS 1+ (0-0); BAND NEUTROPHILS #M 0.8 10^3/ul (0.0-0.6); BAND NEUTROPHILS % (M) 3 % (0-4); BURR CELLS 1+ (0-0); ERYTHROBLAST% (NRBC) (M) 2 % (0-0); LYMPHOCYTES #M 2.6 10^3/ul (0.8-2.9); LYMPHOCYTES % (M) 9 % (15-51); MICROCYTOSIS 1+ (0-0); MONOCYTE #M 1.7 10^3/ul (0.3-0.9); MONOCYTES % (M) 6 % (0-11); MYELOCYTES #M 0.8 10^3/ul (0.0-0.0); MYELOCYTES % (M) 3 % (0-0); PLATELET ESTIMATE NORMAL; POIKILOCYTOSIS 1+ (0-0); POLYCHROMASIA 3+ (0-0); SEG NEUT #M 23.4 10^3/ul (1.6-7.5); SEGMENTED NEUTROPHILS (M) % 79 % (39-77); SPHEROCYTES 1+ (0-0)
[2018-05-21 22:42] LABS: OCCULT BLOOD STOOL NEGATIVE (NEGATIVE)
[2018-05-22] MEDS: HYDROmorphONE 1 MG/ML SYG IV ×4 (00:14→20:56)
[2018-05-22 05:06] LABS: ABNORMAL IP MESSAGE 1; HEMATOCRIT 26.5 % (42.0-52.0); HEMOGLOBIN 8.4 g/dl (14.0-18.0); MEAN CORPUSCULAR HEMOGLOBIN 26.7 pg (29.0-33.0); MEAN CORPUSCULAR HGB CONC 31.7 g/dl (32.0-37.0); MEAN CORPUSCULAR VOLUME 84.1 fl (82.0-101.0); MEAN PLATELET VOLUME 9.1 fl (7.4-10.4); NUCLEATED RED BLOOD CELLS% 1.4 /100WBC (0.0-0.0); PLATELET COUNT 331 10^3/UL (140-415); POSITIVE DIFF @See below; RED BLOOD COUNT 3.15 10^6/ul (4.70-6.10); RED CELL DISTRIBUTION WIDTH 19.5 % (11.5-14.5)
[2018-05-22 05:06] LABS: WHITE BLOOD COUNT 32.6 10^3/ul (4.8-10.8)
[2018-05-22 05:19] LABS: ADD MAN DIFF? YES
[2018-05-22] MEDS: PANTOPRAZOLE (EC) 40 MG TAB PO (05:32)
[2018-05-22] MEDS: HYDROCODONE/APAP (5/325) TAB PO ×3 (05:33→21:01)
[2018-05-22 05:43] LABS: ANION GAP 9 (8-16); BLOOD UREA NITROGEN 51 mg/dl (7-20); CALCIUM 8.4 mg/dl (8.4-10.2); CARBON DIOXIDE 25 mmol/L (21-31); CHLORIDE 106 mmol/L (97-110); CREATININE 1.23 mg/dl (0.61-1.24); GLUCOSE 158 mg/dl (70-220); SODIUM 135 mmol/L (135-144)
[2018-05-22] MEDS: INSULIN ASPART [NOVOLOG] 3 ML PEN SC ×4 (07:50→21:00)
[2018-05-22 08:06] LABS: ANISOCYTOSIS 1+ (0-0); BAND NEUTROPHILS #M 3.2 10^3/ul (0.0-0.6); BAND NEUTROPHILS % (M) 10 % (0-4); ERYTHROBLAST% (NRBC) (M) 1 % (0-0); LYMPHOCYTES #M 1.6 10^3/ul (0.8-2.9); LYMPHOCYTES % (M) 5 % (15-51); MONOCYTE #M 2.9 10^3/ul (0.3-0.9); MONOCYTES % (M) 9 % (0-11); PLATELET ESTIMATE NORMAL; POIKILOCYTOSIS 1+ (0-0); POLYCHROMASIA 2+ (0-0); REACTIVE LYMPHOCYTES #M 0.3 10^3/ul (0.0-0.0); REACTIVE LYMPHOCYTES% (M) 1 % (0-0); SEG NEUT #M 25.5 10^3/ul (1.6-7.5); SEGMENTED NEUTROPHILS (M) % 75 % (39-77); SMUDGE%M 4 % (0-0)
[2018-05-22 08:21] LABS: PLATELET MORPHOLOGY COMMENT @See below
[2018-05-22] MEDS: DEXAMETHASONE 2 MG TAB PO (08:44)
[2018-05-22] MEDS: AMLODIPINE 10 MG TAB PO (09:52)
[2018-05-22] MEDS: METOPROLOL (XL) 25 MG TAB PO ×2 (09:52→21:01)
[2018-05-22] MEDS: DEXAMETHASONE 1 MG TAB PO (17:53)
[2018-05-23] MEDS: HYDROmorphONE 1 MG/ML SYG IV ×6 (00:17→21:46)
[2018-05-23 05:13] LABS: WHITE BLOOD COUNT 36.7 10^3/ul (4.8-10.8)
[2018-05-23 05:13] LABS: ABNORMAL IP MESSAGE 1; HEMATOCRIT 30.5 % (42.0-52.0); HEMOGLOBIN 9.6 g/dl (14.0-18.0); MEAN CORPUSCULAR HEMOGLOBIN 26.5 pg (29.0-33.0); MEAN CORPUSCULAR HGB CONC 31.5 g/dl (32.0-37.0); MEAN CORPUSCULAR VOLUME 84.3 fl (82.0-101.0); MEAN PLATELET VOLUME 8.8 fl (7.4-10.4); NUCLEATED RED BLOOD CELLS% 1.5 /100WBC (0.0-0.0); PLATELET COUNT 352 10^3/UL (140-415); POSITIVE DIFF @See below; RED BLOOD COUNT 3.62 10^6/ul (4.70-6.10); RED CELL DISTRIBUTION WIDTH 19.9 % (11.5-14.5)
[2018-05-23 05:24] LABS: ADD MAN DIFF? YES
[2018-05-23] MEDS: PANTOPRAZOLE (EC) 40 MG TAB PO (05:49)
[2018-05-23] MEDS: HYDROCODONE/APAP (5/325) TAB PO ×3 (05:49→23:53)
[2018-05-23 05:58] LABS: ANION GAP 11 (8-16); BLOOD UREA NITROGEN 52 mg/dl (7-20); CALCIUM 8.7 mg/dl (8.4-10.2); CARBON DIOXIDE 27 mmol/L (21-31); CHLORIDE 104 mmol/L (97-110); CREATININE 1.27 mg/dl (0.61-1.24); GLUCOSE 126 mg/dl (70-220); SODIUM 137 mmol/L (135-144)
[2018-05-23] MEDS: INSULIN ASPART [NOVOLOG] 3 ML PEN SC ×4 (07:50→21:00)
[2018-05-23] MEDS: DEXAMETHASONE 1 MG TAB PO ×2 (08:07→18:29)
[2018-05-23] MEDS: AMLODIPINE 10 MG TAB PO (08:07)
[2018-05-23] MEDS: METOPROLOL (XL) 25 MG TAB PO ×2 (08:08→20:57)
[2018-05-23 08:17] LABS: ANISOCYTOSIS 2+ (0-0); BAND NEUTROPHILS #M 2.5 10^3/ul (0.0-0.6); BAND NEUTROPHILS % (M) 7 % (0-4); BURR CELLS 1+ (0-0); ERYTHROBLAST% (NRBC) (M) 4 % (0-0); LYMPHOCYTES #M 2.2 10^3/ul (0.8-2.9); LYMPHOCYTES % (M) 6 % (15-51); METAMYELOCYTES #M 0.3 10^3/ul (0.0-0.0); METAMYELOCYTES %M 1 % (0-0); MICROCYTOSIS 1+ (0-0); MONOCYTE #M 2.9 10^3/ul (0.3-0.9); MONOCYTES % (M) 8 % (0-11); MYELOCYTES #M 0.7 10^3/ul (0.0-0.0); MYELOCYTES % (M) 2 % (0-0); PLATELET ESTIMATE NORMAL; POIKILOCYTOSIS 2+ (0-0); POLYCHROMASIA 3+ (0-0); SEG NEUT #M 28.8 10^3/ul (1.6-7.5); SEGMENTED NEUTROPHILS (M) % 76 % (39-77); SMUDGE%M 17 % (0-0)
[2018-05-24] MEDS ORDERED: VANCOMYCIN IV PER PHARMACY XX
[2018-05-24] MEDS: CEFEPIME 1GM/50 ML (PMX) 50 ML IVPB ×3 (01:46→20:15)
[2018-05-24] MEDS: HYDROmorphONE 1 MG/ML SYG IV ×4 (02:37→23:11)
[2018-05-24] MEDS: VANCOMYCIN 1.5 GM in SOD CHLORIDE 0.9% 250 ML IVPB (02:39)
[2018-05-24 03:39] LABS: ADD UMIC YES; UR AMORPHOUS CRYSTAL FEW /HPF (NONE SEEN); UR ASCORBIC ACID NEGATIVE (NEGATIVE); UR BACTERIA FEW /HPF (NONE SEEN); UR BILIRUBIN (Dip) NEGATIVE (NEGATIVE); UR BLOOD (Dip) 1+ mg/dL (NEGATIVE); UR CLARITY SLIGHTLY CLOUDY (CLEAR); UR CLARITY TURBID (CLEAR); UR COLOR AMBER (YELLOW); UR COLOR YELLOW (YELLOW); UR GLUCOSE (Dip) NEGATIVE (NEGATIVE); UR KETONES (Dip) NEGATIVE (NEGATIVE); UR LEUKOCYTE ESTERASE (Dip) 3+ Leu/ul (NEGATIVE); UR MUCUS FEW /HPF (NONE SEEN); UR NITRITE (Dip) NEGATIVE (NEGATIVE); UR NITRITE (Dip) POSITIVE (NEGATIVE); UR RBC 17 /HPF (0-5); UR RBC 2 /HPF (0-5); UR SPECIFIC GRAVITY (Dip) 1.009 (1.003-1.030); UR SPECIFIC GRAVITY (Dip) 1.012 (1.003-1.030); UR SQUAMOUS EPITHELIAL CELL FEW /HPF (FEW); UR TOTAL PROTEIN (Dip) 2+ mg/dl (NEGATIVE); UR TOTAL PROTEIN (Dip) NEGATIVE (NEGATIVE); UR UROBILINOGEN (Dip) NEGATIVE (NEGATIVE); UR WBC 43 /HPF (0-5); UR WBC > 182 /HPF (0-5)
[2018-05-24 03:42] LABS: ADD UMIC YES; UR AMORPHOUS CRYSTAL FEW /HPF (NONE SEEN); UR ASCORBIC ACID NEGATIVE (NEGATIVE); UR BACTERIA FEW /HPF (NONE SEEN); UR BILIRUBIN (Dip) NEGATIVE (NEGATIVE); UR BLOOD (Dip) 2+ mg/dL (NEGATIVE); UR CLARITY CLOUDY (CLEAR); UR COLOR RED (YELLOW); UR GLUCOSE (Dip) NEGATIVE (NEGATIVE); UR KETONES (Dip) NEGATIVE (NEGATIVE); UR LEUKOCYTE ESTERASE (Dip) 3+ Leu/ul (NEGATIVE); UR NITRITE (Dip) NEGATIVE (NEGATIVE); UR RBC 28 /HPF (0-5); UR SPECIFIC GRAVITY (Dip) 1.009 (1.003-1.030); UR SQUAMOUS EPITHELIAL CELL FEW /HPF (FEW); UR TOTAL PROTEIN (Dip) 3+ mg/dl (NEGATIVE); UR UROBILINOGEN (Dip) NEGATIVE (NEGATIVE); UR WBC 50 /HPF (0-5)
[2018-05-24 03:46] LABS: ADD UMIC YES; UR ASCORBIC ACID NEGATIVE (NEGATIVE); UR BACTERIA FEW /HPF (NONE SEEN); UR BILIRUBIN (Dip) NEGATIVE (NEGATIVE); UR BLOOD (Dip) 3+ mg/dL (NEGATIVE); UR CLARITY CLOUDY (CLEAR); UR COLOR RED (YELLOW); UR GLUCOSE (Dip) NEGATIVE (NEGATIVE); UR KETONES (Dip) NEGATIVE (NEGATIVE); UR LEUKOCYTE ESTERASE (Dip) 2+ Leu/ul (NEGATIVE); UR NITRITE (Dip) NEGATIVE (NEGATIVE); UR RBC > 182 /HPF (0-5); UR SPECIFIC GRAVITY (Dip) 1.009 (1.003-1.030); UR TOTAL PROTEIN (Dip) 2+ mg/dl (NEGATIVE); UR TRANSITIONAL EPI CELL FEW /HPF (NONE SEEN); UR UROBILINOGEN (Dip) NEGATIVE (NEGATIVE); UR WBC > 182 /HPF (0-5)
[2018-05-24 05:44] LABS: ADD MAN DIFF? NO
[2018-05-24 05:47] LABS: ABNORMAL IP MESSAGE 1; BASOPHIL # 0.1 10^3/ul (0.0-0.1); BASOPHILS % 0.1 % (0.0-2.0); EOSINOPHILS # 0.1 10^3/ul (0.0-0.5); EOSINOPHILS % 0.1 % (0.0-7.0); HEMATOCRIT 28.5 % (42.0-52.0); HEMOGLOBIN 8.9 g/dl (14.0-18.0); LYMPHOCYTES # 1.2 10^3/ul (0.8-2.9); LYMPHOCYTES % 3.3 % (15.0-51.0); MEAN CORPUSCULAR HEMOGLOBIN 26.4 pg (29.0-33.0); MEAN CORPUSCULAR HGB CONC 31.2 g/dl (32.0-37.0); MEAN CORPUSCULAR VOLUME 84.6 fl (82.0-101.0); MEAN PLATELET VOLUME 8.8 fl (7.4-10.4); MONOCYTE # 1.9 10^3/ul (0.3-0.9); MONOCYTES % 5.5 % (0.0-11.0); NEUTROPHIL # 29.8 10^3/ul (1.6-7.5); NEUTROPHILS % 86.2 % (39.0-77.0); NUCLEATED RED BLOOD CELLS # 0.1 10^3/ul (0.0-0.0); NUCLEATED RED BLOOD CELLS% 0.2 /100WBC (0.0-0.0); PLATELET COUNT 266 10^3/UL (140-415); POSITIVE DIFF @See below; RED BLOOD COUNT 3.37 10^6/ul (4.70-6.10); RED CELL DISTRIBUTION WIDTH 19.6 % (11.5-14.5)
[2018-05-24 06:19] LABS: WHITE BLOOD COUNT 34.7 10^3/ul (4.8-10.8)
[2018-05-24 06:33] LABS: ANION GAP 11 (8-16); BLOOD UREA NITROGEN 49 mg/dl (7-20); CALCIUM 8.6 mg/dl (8.4-10.2); CARBON DIOXIDE 24 mmol/L (21-31); CHLORIDE 103 mmol/L (97-110); CREATININE 1.04 mg/dl (0.61-1.24); GLUCOSE 163 mg/dl (70-220); POTASSIUM 4.6 mmol/L (3.5-5.1); SODIUM 133 mmol/L (135-144)
[2018-05-24] MEDS: PANTOPRAZOLE (EC) 40 MG TAB PO (06:51)
[2018-05-24] MEDS: HYDROCODONE/APAP (5/325) TAB PO ×3 (06:59→22:15)
[2018-05-24] MEDS: INSULIN ASPART [NOVOLOG] 3 ML PEN SC ×4 (07:50→21:00)
[2018-05-24] MEDS: DEXAMETHASONE 1 MG TAB PO ×2 (08:57→20:13)
[2018-05-24] MEDS: METOPROLOL (XL) 25 MG TAB PO ×2 (08:59→20:14)
[2018-05-24] MEDS: AMLODIPINE 10 MG TAB PO (09:00)
[2018-05-24] MEDS: VANCOMYCIN 1 GM 250 ML IVPB (15:42)
[2018-05-25] MEDS: HYDROmorphONE 1 MG/ML SYG IV ×5 (02:56→23:46)
[2018-05-25] MEDS: VANCOMYCIN 1 GM 250 ML IVPB ×2 (02:56→16:32)
[2018-05-25] MEDS: PANTOPRAZOLE (EC) 40 MG TAB PO (05:17)
[2018-05-25] MEDS: HYDROCODONE/APAP (5/325) TAB PO ×3 (05:17→21:39)
[2018-05-25 05:59] LABS: ADD MAN DIFF? NO
[2018-05-25 06:08] LABS: BASOPHILS % 0.1 % (0.0-2.0); EOSINOPHILS # 0.1 10^3/ul (0.0-0.5); EOSINOPHILS % 0.5 % (0.0-7.0); HEMATOCRIT 23.9 % (42.0-52.0); HEMOGLOBIN 7.4 g/dl (14.0-18.0); LYMPHOCYTES # 0.9 10^3/ul (0.8-2.9); LYMPHOCYTES % 4.4 % (15.0-51.0); MEAN CORPUSCULAR HEMOGLOBIN 25.9 pg (29.0-33.0); MEAN CORPUSCULAR VOLUME 83.6 fl (82.0-101.0); MEAN PLATELET VOLUME 9.3 fl (7.4-10.4); MONOCYTES % 4.7 % (0.0-11.0); NEUTROPHIL # 18.7 10^3/ul (1.6-7.5); NUCLEATED RED BLOOD CELLS # 0.1 10^3/ul (0.0-0.0); NUCLEATED RED BLOOD CELLS% 0.4 /100WBC (0.0-0.0); PLATELET COUNT 220 10^3/UL (140-415); RED BLOOD COUNT 2.86 10^6/ul (4.70-6.10); RED CELL DISTRIBUTION WIDTH 19.2 % (11.5-14.5)
[2018-05-25 06:08] LABS: WHITE BLOOD COUNT 21.4 10^3/ul (4.8-10.8)
[2018-05-25 07:50] LABS: ANION GAP 12 (8-16); BLOOD UREA NITROGEN 52 mg/dl (7-20); CALCIUM 8.2 mg/dl (8.4-10.2); CARBON DIOXIDE 21 mmol/L (21-31); CHLORIDE 105 mmol/L (97-110); CREATININE 0.94 mg/dl (0.61-1.24); GLUCOSE 167 mg/dl (70-220); POTASSIUM 4.5 mmol/L (3.5-5.1); SODIUM 133 mmol/L (135-144)
[2018-05-25] MEDS: AMLODIPINE 10 MG TAB PO (09:00)
[2018-05-25] MEDS: METOPROLOL (XL) 25 MG TAB PO ×2 (09:00→21:40)
[2018-05-25] MEDS: INSULIN ASPART [NOVOLOG] 3 ML PEN SC ×4 (09:05→21:00)
[2018-05-25] MEDS: CEFEPIME 1GM/50 ML (PMX) 50 ML IVPB ×2 (10:04→21:41)
[2018-05-25] MEDS ORDERED: VANCOMYCIN 1 GM 250 ML IVPB (13:00)
[2018-05-25 15:16] LABS: VANCOMYCIN,TROUGH 18.9 ug/ml (10.0-20.0)
[2018-05-25] MEDS: DEXAMETHASONE 1 MG TAB PO (19:29)
[2018-05-26] MEDS: VANCOMYCIN 1 GM 250 ML IVPB (03:07)
[2018-05-26] MEDS: HYDROmorphONE 1 MG/ML SYG IV ×5 (03:10→23:37)
[2018-05-26 04:50] LABS: ADD MAN DIFF? NO
[2018-05-26 04:56] LABS: BASOPHILS % 0.1 % (0.0-2.0); EOSINOPHILS # 0.2 10^3/ul (0.0-0.5); EOSINOPHILS % 0.9 % (0.0-7.0); HEMATOCRIT 26.1 % (42.0-52.0); HEMOGLOBIN 8.1 g/dl (14.0-18.0); LYMPHOCYTES % 5.7 % (15.0-51.0); MEAN CORPUSCULAR HEMOGLOBIN 25.9 pg (29.0-33.0); MEAN CORPUSCULAR VOLUME 83.4 fl (82.0-101.0); MEAN PLATELET VOLUME 9.2 fl (7.4-10.4); MONOCYTE # 0.9 10^3/ul (0.3-0.9); MONOCYTES % 5.2 % (0.0-11.0); NEUTROPHIL # 14.9 10^3/ul (1.6-7.5); NEUTROPHILS % 83.5 % (39.0-77.0); NUCLEATED RED BLOOD CELLS # 0.1 10^3/ul (0.0-0.0); NUCLEATED RED BLOOD CELLS% 0.8 /100WBC (0.0-0.0); PLATELET COUNT 224 10^3/UL (140-415); RED BLOOD COUNT 3.13 10^6/ul (4.70-6.10); RED CELL DISTRIBUTION WIDTH 18.8 % (11.5-14.5)
[2018-05-26 04:56] LABS: WHITE BLOOD COUNT 17.9 10^3/ul (4.8-10.8)
[2018-05-26 05:25] LABS: ANION GAP 11 (8-16); BLOOD UREA NITROGEN 54 mg/dl (7-20); CALCIUM 8.8 mg/dl (8.4-10.2); CARBON DIOXIDE 24 mmol/L (21-31); CHLORIDE 102 mmol/L (97-110); CREATININE 1.06 mg/dl (0.61-1.24); GLUCOSE 143 mg/dl (70-220); POTASSIUM 4.6 mmol/L (3.5-5.1); SODIUM 132 mmol/L (135-144)
[2018-05-26] MEDS: PANTOPRAZOLE (EC) 40 MG TAB PO (05:44)
[2018-05-26] MEDS: HYDROCODONE/APAP (5/325) TAB PO ×3 (05:44→17:53)
[2018-05-26] MEDS: INSULIN ASPART [NOVOLOG] 3 ML PEN SC ×4 (07:50→21:00)
[2018-05-26] MEDS: CEFEPIME 1GM/50 ML (PMX) 50 ML IVPB (08:44)
[2018-05-26] MEDS: AMLODIPINE 10 MG TAB PO (08:45)
[2018-05-26] MEDS: METOPROLOL (XL) 25 MG TAB PO ×2 (08:45→21:31)
[2018-05-26] MEDS: PIPER-TAZO 3.375 GM IV (PMX) 100 ML IVPB ×3 (12:19→23:39)
[2018-05-26] MEDS: VANCOMYCIN 750 MG in SOD CHLORIDE 0.9% 150 ML IVPB (19:07)
[2018-05-27] MEDS: HYDROmorphONE 1 MG/ML SYG IV ×6 (03:40→21:00)
[2018-05-27 05:22] LABS: ADD MAN DIFF? NO
[2018-05-27 05:25] LABS: BASOPHILS % 0.2 % (0.0-2.0); EOSINOPHILS # 0.4 10^3/ul (0.0-0.5); EOSINOPHILS % 2.4 % (0.0-7.0); HEMATOCRIT 26.9 % (42.0-52.0); HEMOGLOBIN 8.5 g/dl (14.0-18.0); LYMPHOCYTES # 1.1 10^3/ul (0.8-2.9); LYMPHOCYTES % 7.4 % (15.0-51.0); MEAN CORPUSCULAR HEMOGLOBIN 26.3 pg (29.0-33.0); MEAN CORPUSCULAR HGB CONC 31.6 g/dl (32.0-37.0); MEAN CORPUSCULAR VOLUME 83.3 fl (82.0-101.0); MEAN PLATELET VOLUME 9.6 fl (7.4-10.4); MONOCYTE # 0.9 10^3/ul (0.3-0.9); MONOCYTES % 6.2 % (0.0-11.0); NEUTROPHIL # 11.3 10^3/ul (1.6-7.5); NEUTROPHILS % 78.9 % (39.0-77.0); NUCLEATED RED BLOOD CELLS # 0.2 10^3/ul (0.0-0.0); PLATELET COUNT 259 10^3/UL (140-415); RED BLOOD COUNT 3.23 10^6/ul (4.70-6.10)
[2018-05-27 05:25] LABS: WHITE BLOOD COUNT 14.4 10^3/ul (4.8-10.8)
[2018-05-27] MEDS: PIPER-TAZO 3.375 GM IV (PMX) 100 ML IVPB ×3 (06:04→17:29)
[2018-05-27] MEDS: HYDROCODONE/APAP (5/325) TAB PO ×4 (06:06→18:11)
[2018-05-27] MEDS: PANTOPRAZOLE (EC) 40 MG TAB PO (06:06)
[2018-05-27 06:47] LABS: ANION GAP 10 (8-16); BLOOD UREA NITROGEN 47 mg/dl (7-20); CALCIUM 8.7 mg/dl (8.4-10.2); CARBON DIOXIDE 26 mmol/L (21-31); CHLORIDE 104 mmol/L (97-110); GLUCOSE 105 mg/dl (70-220); POTASSIUM 4.3 mmol/L (3.5-5.1); SODIUM 136 mmol/L (135-144)
[2018-05-27] MEDS: VANCOMYCIN 750 MG in SOD CHLORIDE 0.9% 150 ML IVPB (06:55)
[2018-05-27] MEDS: INSULIN ASPART [NOVOLOG] 3 ML PEN SC ×4 (08:50→20:30)
[2018-05-27] MEDS: METOPROLOL (XL) 25 MG TAB PO ×2 (09:00→20:30)
[2018-05-27] MEDS: AMLODIPINE 10 MG TAB PO (09:01)
[2018-05-28] MEDS: PIPER-TAZO 3.375 GM IV (PMX) 100 ML IVPB (00:10)
[2018-05-28] MEDS: HYDROmorphONE 1 MG/ML SYG IV ×8 (00:11→22:06)
[2018-05-28] MEDS ORDERED: MEROPENEM 1 GM/50ML(PMX) 50 ML IVPB (01:30)
[2018-05-28] MEDS: LEVOFLOXACIN 500MG/D5W (PMX) 100 ML IVPB (02:13)
[2018-05-28 05:27] LABS: ADD MAN DIFF? NO
[2018-05-28 05:35] LABS: WHITE BLOOD COUNT 17.4 10^3/ul (4.8-10.8)
[2018-05-28 05:35] LABS: BASOPHILS % 0.2 % (0.0-2.0); EOSINOPHILS # 0.2 10^3/ul (0.0-0.5); EOSINOPHILS % 1.3 % (0.0-7.0); HEMATOCRIT 27.6 % (42.0-52.0); HEMOGLOBIN 8.5 g/dl (14.0-18.0); LYMPHOCYTES # 0.9 10^3/ul (0.8-2.9); LYMPHOCYTES % 5.3 % (15.0-51.0); MEAN CORPUSCULAR HEMOGLOBIN 25.4 pg (29.0-33.0); MEAN CORPUSCULAR HGB CONC 30.8 g/dl (32.0-37.0); MEAN CORPUSCULAR VOLUME 82.4 fl (82.0-101.0); MEAN PLATELET VOLUME 9.4 fl (7.4-10.4); MONOCYTES % 5.6 % (0.0-11.0); NEUTROPHIL # 14.8 10^3/ul (1.6-7.5); NUCLEATED RED BLOOD CELLS # 0.1 10^3/ul (0.0-0.0); NUCLEATED RED BLOOD CELLS% 0.6 /100WBC (0.0-0.0); PLATELET COUNT 200 10^3/UL (140-415); RED BLOOD COUNT 3.35 10^6/ul (4.70-6.10)
[2018-05-28] MEDS: HYDROCODONE/APAP (5/325) TAB PO ×4 (06:00→18:06)
[2018-05-28] MEDS ORDERED: VANCOMYCIN 750 MG in SOD CHLORIDE 0.9% 150 ML IVPB (06:00)
[2018-05-28] MEDS: MEROPENEM 1 GM/50ML(PMX) 50 ML IVPB ×3 (06:11→22:12)
[2018-05-28] MEDS: PANTOPRAZOLE (EC) 40 MG TAB PO (06:11)
[2018-05-28 06:34] LABS: ANION GAP 11 (8-16); BLOOD UREA NITROGEN 42 mg/dl (7-20); CALCIUM 9.1 mg/dl (8.4-10.2); CARBON DIOXIDE 24 mmol/L (21-31); CHLORIDE 104 mmol/L (97-110); GLUCOSE 98 mg/dl (70-220); POTASSIUM 4.3 mmol/L (3.5-5.1); SODIUM 135 mmol/L (135-144)
[2018-05-28] MEDS: AMLODIPINE 10 MG TAB PO (08:55)
[2018-05-28] MEDS: METOPROLOL (XL) 25 MG TAB PO ×2 (08:56→20:40)
[2018-05-28] MEDS: INSULIN ASPART [NOVOLOG] 3 ML PEN SC ×4 (08:56→21:00)
[2018-05-29] MEDS: HYDROCODONE/APAP (5/325) TAB PO ×5 (00:21→23:48)
[2018-05-29] MEDS: HYDROmorphONE 1 MG/ML SYG IV ×6 (01:12→21:07)
[2018-05-29] MEDS: LEVOFLOXACIN 500MG/D5W (PMX) 100 ML IVPB (02:41)
[2018-05-29 04:59] LABS: ADD MAN DIFF? NO
[2018-05-29 05:01] LABS: WHITE BLOOD COUNT 9.5 10^3/ul (4.8-10.8)
[2018-05-29 05:01] LABS: ABNORMAL IP MESSAGE 1; BASOPHILS % 0.4 % (0.0-2.0); EOSINOPHILS # 0.2 10^3/ul (0.0-0.5); LYMPHOCYTES # 1.5 10^3/ul (0.8-2.9); LYMPHOCYTES % 15.3 % (15.0-51.0); MEAN CORPUSCULAR HEMOGLOBIN 25.3 pg (29.0-33.0); MEAN CORPUSCULAR HGB CONC 29.4 g/dl (32.0-37.0); MEAN CORPUSCULAR VOLUME 85.9 fl (82.0-101.0); MEAN PLATELET VOLUME 9.5 fl (7.4-10.4); MONOCYTE # 0.2 10^3/ul (0.3-0.9); MONOCYTES % 1.6 % (0.0-11.0); NEUTROPHIL # 7.1 10^3/ul (1.6-7.5); NEUTROPHILS % 75.3 % (39.0-77.0); NUCLEATED RED BLOOD CELLS # 0.3 10^3/ul (0.0-0.0); NUCLEATED RED BLOOD CELLS% 3.2 /100WBC (0.0-0.0); PLATELET COUNT 194 10^3/UL (140-415); POSITIVE DIFF @See below; RED BLOOD COUNT 3.96 10^6/ul (4.70-6.10); RED CELL DISTRIBUTION WIDTH 18.9 % (11.5-14.5)
[2018-05-29 05:30] LABS: BLOOD UREA NITROGEN 40 mg/dl (7-20); CALCIUM 9.8 mg/dl (8.4-10.2); CARBON DIOXIDE 23 mmol/L (21-31); CHLORIDE 101 mmol/L (97-110); CREATININE 1.14 mg/dl (0.61-1.24); GLUCOSE 99 mg/dl (70-220); POTASSIUM 5.1 mmol/L (3.5-5.1); SODIUM 136 mmol/L (135-144)
[2018-05-29] MEDS: PANTOPRAZOLE (EC) 40 MG TAB PO (05:53)
[2018-05-29] MEDS: MEROPENEM 1 GM/50ML(PMX) 50 ML IVPB ×3 (05:53→21:06)
[2018-05-29] MEDS: INSULIN ASPART [NOVOLOG] 3 ML PEN SC ×4 (07:50→21:00)
[2018-05-29 09:03] LABS: ANION GAP 12 (5-13)
[2018-05-29] MEDS: AMLODIPINE 10 MG TAB PO (09:04)
[2018-05-29] MEDS: METOPROLOL (XL) 25 MG TAB PO ×2 (09:05→21:06)
[2018-05-30] MEDS: HYDROmorphONE 1 MG/ML SYG IV ×9 (01:24→22:20)
[2018-05-30] MEDS: LEVOFLOXACIN 500MG/D5W (PMX) 100 ML IVPB (01:27)
[2018-05-30] MEDS: PANTOPRAZOLE (EC) 40 MG TAB PO (05:12)
[2018-05-30] MEDS: MEROPENEM 1 GM/50ML(PMX) 50 ML IVPB ×3 (05:12→21:28)
[2018-05-30] MEDS: HYDROCODONE/APAP (5/325) TAB PO ×3 (06:05→15:36)
[2018-05-30] MEDS: INSULIN ASPART [NOVOLOG] 3 ML PEN SC ×4 (07:50→21:00)
[2018-05-30] MEDS: METOPROLOL (XL) 25 MG TAB PO ×2 (11:03→21:31)
[2018-05-30] MEDS: AMLODIPINE 10 MG TAB PO (11:04)
[2018-05-31] MEDS: HYDROCODONE/APAP (5/325) TAB PO ×5 (00:14→23:52)
[2018-05-31] MEDS: LEVOFLOXACIN 500MG/D5W (PMX) 100 ML IVPB (01:24)
[2018-05-31] MEDS: HYDROmorphONE 1 MG/ML SYG IV ×7 (01:24→23:48)
[2018-05-31] MEDS: MEROPENEM 1 GM/50ML(PMX) 50 ML IVPB ×3 (05:18→20:32)
[2018-05-31] MEDS: PANTOPRAZOLE (EC) 40 MG TAB PO (05:19)
[2018-05-31 06:11] LABS: ADD MAN DIFF? NO
[2018-05-31 06:19] LABS: BASOPHILS % 0.1 % (0.0-2.0); EOSINOPHILS # 0.3 10^3/ul (0.0-0.5); EOSINOPHILS % 3.3 % (0.0-7.0); HEMATOCRIT 25.9 % (42.0-52.0); HEMOGLOBIN 7.7 g/dl (14.0-18.0); LYMPHOCYTES # 1.3 10^3/ul (0.8-2.9); LYMPHOCYTES % 15.6 % (15.0-51.0); MEAN CORPUSCULAR HEMOGLOBIN 25.6 pg (29.0-33.0); MEAN CORPUSCULAR HGB CONC 29.7 g/dl (32.0-37.0); MEAN PLATELET VOLUME 10.2 fl (7.4-10.4); MONOCYTE # 0.6 10^3/ul (0.3-0.9); MONOCYTES % 7.9 % (0.0-11.0); NEUTROPHIL # 5.7 10^3/ul (1.6-7.5); NEUTROPHILS % 70.4 % (39.0-77.0); NUCLEATED RED BLOOD CELLS # 0.1 10^3/ul (0.0-0.0); NUCLEATED RED BLOOD CELLS% 0.9 /100WBC (0.0-0.0); PLATELET COUNT 142 10^3/UL (140-415); RED BLOOD COUNT 3.01 10^6/ul (4.70-6.10); RED CELL DISTRIBUTION WIDTH 18.6 % (11.5-14.5)
[2018-05-31 06:19] LABS: WHITE BLOOD COUNT 8.1 10^3/ul (4.8-10.8)
[2018-05-31 06:48] LABS: ANION GAP 4 (5-13); BLOOD UREA NITROGEN 35 mg/dl (7-20); CALCIUM 9.7 mg/dl (8.4-10.2); CARBON DIOXIDE 29 mmol/L (21-31); CHLORIDE 103 mmol/L (97-110); CREATININE 1.21 mg/dl (0.61-1.24); GLUCOSE 142 mg/dl (70-220); POTASSIUM 4.2 mmol/L (3.5-5.1); SODIUM 136 mmol/L (135-144)
[2018-05-31] MEDS: AMLODIPINE 10 MG TAB PO (08:22)
[2018-05-31] MEDS: METOPROLOL (XL) 25 MG TAB PO ×2 (08:22→20:32)
[2018-05-31] MEDS: INSULIN ASPART [NOVOLOG] 3 ML PEN SC ×4 (08:54→20:33)
[2018-05-31 12:19] LABS: HEMOGLOBIN 9.6 g/dl (14.0-18.0)
[2018-06-01] MEDS: HYDROmorphONE 1 MG/ML SYG IV ×6 (02:41→20:14)
[2018-06-01] MEDS: LEVOFLOXACIN 500MG/D5W (PMX) 100 ML IVPB (02:41)
[2018-06-01] MEDS: PANTOPRAZOLE (EC) 40 MG TAB PO (05:52)
[2018-06-01] MEDS: HYDROCODONE/APAP (5/325) TAB PO ×3 (05:52→17:44)
[2018-06-01] MEDS: MEROPENEM 1 GM/50ML(PMX) 50 ML IVPB ×3 (05:53→22:19)
[2018-06-01] MEDS: INSULIN ASPART [NOVOLOG] 3 ML PEN SC ×4 (07:50→20:13)
[2018-06-01] MEDS: METOPROLOL (XL) 25 MG TAB PO ×2 (08:27→20:14)
[2018-06-01] MEDS: AMLODIPINE 10 MG TAB PO (08:27)
[2018-06-02] MEDS: LEVOFLOXACIN 500MG/D5W (PMX) 100 ML IVPB (01:01)
[2018-06-02] MEDS: HYDROCODONE/APAP (5/325) TAB PO ×4 (01:01→18:34)
[2018-06-02] MEDS: HYDROmorphONE 1 MG/ML SYG IV ×5 (02:01→20:30)
[2018-06-02 04:58] LABS: ADD MAN DIFF? NO
[2018-06-02 04:59] LABS: WHITE BLOOD COUNT 9.4 10^3/ul (4.8-10.8)
[2018-06-02 04:59] LABS: BASOPHILS % 0.2 % (0.0-2.0); EOSINOPHILS # 0.4 10^3/ul (0.0-0.5); EOSINOPHILS % 4.2 % (0.0-7.0); HEMATOCRIT 27.8 % (42.0-52.0); HEMOGLOBIN 8.2 g/dl (14.0-18.0); LYMPHOCYTES # 1.5 10^3/ul (0.8-2.9); LYMPHOCYTES % 15.7 % (15.0-51.0); MEAN CORPUSCULAR HGB CONC 29.5 g/dl (32.0-37.0); MEAN CORPUSCULAR VOLUME 84.8 fl (82.0-101.0); MONOCYTE # 0.6 10^3/ul (0.3-0.9); MONOCYTES % 6.8 % (0.0-11.0); NEUTROPHIL # 6.6 10^3/ul (1.6-7.5); NEUTROPHILS % 69.4 % (39.0-77.0); NUCLEATED RED BLOOD CELLS # 0.1 10^3/ul (0.0-0.0); NUCLEATED RED BLOOD CELLS% 1.1 /100WBC (0.0-0.0); PLATELET COUNT 163 10^3/UL (140-415); RED BLOOD COUNT 3.28 10^6/ul (4.70-6.10); RED CELL DISTRIBUTION WIDTH 18.7 % (11.5-14.5)
[2018-06-02 05:40] LABS: ANION GAP 8 (5-13); BLOOD UREA NITROGEN 27 mg/dl (7-20); CALCIUM 10.3 mg/dl (8.4-10.2); CARBON DIOXIDE 24 mmol/L (21-31); CHLORIDE 103 mmol/L (97-110); CREATININE 1.05 mg/dl (0.61-1.24); GLUCOSE 116 mg/dl (70-220); POTASSIUM 4.3 mmol/L (3.5-5.1); SODIUM 135 mmol/L (135-144)
[2018-06-02] MEDS: PANTOPRAZOLE (EC) 40 MG TAB PO (06:38)
[2018-06-02] MEDS: MEROPENEM 1 GM/50ML(PMX) 50 ML IVPB ×3 (06:39→21:57)
[2018-06-02] MEDS: INSULIN ASPART [NOVOLOG] 3 ML PEN SC ×4 (07:50→20:29)
[2018-06-02] MEDS: METOPROLOL (XL) 25 MG TAB PO ×2 (09:20→20:27)
[2018-06-02] MEDS: AMLODIPINE 10 MG TAB PO (09:20)
[2018-06-03] MEDS: HYDROCODONE/APAP (5/325) TAB PO ×4 (00:12→18:49)
[2018-06-03] MEDS: HYDROmorphONE 1 MG/ML SYG IV ×6 (01:25→21:30)
[2018-06-03] MEDS: LEVOFLOXACIN 500MG/D5W (PMX) 100 ML IVPB (01:52)
[2018-06-03] MEDS: PANTOPRAZOLE (EC) 40 MG TAB PO (06:16)
[2018-06-03] MEDS: MEROPENEM 1 GM/50ML(PMX) 50 ML IVPB ×3 (06:16→21:24)
[2018-06-03] MEDS: INSULIN ASPART [NOVOLOG] 3 ML PEN SC ×2 (07:50→11:40)
[2018-06-03] MEDS: AMLODIPINE 10 MG TAB PO (08:30)
[2018-06-03] MEDS: METOPROLOL (XL) 25 MG TAB PO ×2 (08:31→21:24)
[2018-06-04] MEDS: HYDROCODONE/APAP (5/325) TAB PO ×5 (00:47→23:23)
[2018-06-04] MEDS: LEVOFLOXACIN 500MG/D5W (PMX) 100 ML IVPB (00:47)
[2018-06-04] MEDS: HYDROmorphONE 1 MG/ML SYG IV ×4 (01:29→17:25)
[2018-06-04] MEDS: PANTOPRAZOLE (EC) 40 MG TAB PO (05:43)
[2018-06-04] MEDS: MEROPENEM 1 GM/50ML(PMX) 50 ML IVPB ×4 (05:44→20:31)
[2018-06-04 05:52] LABS: ADD MAN DIFF? NO
[2018-06-04 06:02] LABS: BASOPHILS % 0.3 % (0.0-2.0); EOSINOPHILS # 0.4 10^3/ul (0.0-0.5); EOSINOPHILS % 5.2 % (0.0-7.0); HEMATOCRIT 29.5 % (42.0-52.0); HEMOGLOBIN 8.6 g/dl (14.0-18.0); LYMPHOCYTES # 1.4 10^3/ul (0.8-2.9); LYMPHOCYTES % 20.2 % (15.0-51.0); MEAN CORPUSCULAR HEMOGLOBIN 24.6 pg (29.0-33.0); MEAN CORPUSCULAR HGB CONC 29.2 g/dl (32.0-37.0); MEAN CORPUSCULAR VOLUME 84.5 fl (82.0-101.0); MEAN PLATELET VOLUME 9.7 fl (7.4-10.4); MONOCYTE # 0.7 10^3/ul (0.3-0.9); MONOCYTES % 9.2 % (0.0-11.0); NEUTROPHIL # 4.3 10^3/ul (1.6-7.5); NEUTROPHILS % 60.4 % (39.0-77.0); NUCLEATED RED BLOOD CELLS # 0.1 10^3/ul (0.0-0.0); NUCLEATED RED BLOOD CELLS% 1.3 /100WBC (0.0-0.0); PLATELET COUNT 192 10^3/UL (140-415); RED BLOOD COUNT 3.49 10^6/ul (4.70-6.10); RED CELL DISTRIBUTION WIDTH 19.3 % (11.5-14.5)
[2018-06-04 06:02] LABS: WHITE BLOOD COUNT 7.1 10^3/ul (4.8-10.8)
[2018-06-04 06:21] LABS: ANION GAP 9 (5-13); BLOOD UREA NITROGEN 25 mg/dl (7-20); CALCIUM 10.8 mg/dl (8.4-10.2); CARBON DIOXIDE 26 mmol/L (21-31); CHLORIDE 101 mmol/L (97-110); CREATININE 1.24 mg/dl (0.61-1.24); Estimated GFR 59 mL/min (>60); GLUCOSE 131 mg/dl (70-220); POTASSIUM 4.3 mmol/L (3.5-5.1); SODIUM 136 mmol/L (135-144)
[2018-06-04] MEDS: INSULIN ASPART [NOVOLOG] 3 ML PEN SC (07:50)
[2018-06-04] MEDS: AMLODIPINE 10 MG TAB PO (08:56)
[2018-06-04] MEDS: METOPROLOL (XL) 25 MG TAB PO ×2 (08:56→20:31)
[2018-06-05] MEDS: HYDROmorphONE 2 MG TAB PO ×4 (00:06→23:16)
[2018-06-05] MEDS: LEVOFLOXACIN 500MG/D5W (PMX) 100 ML IVPB (01:02)
[2018-06-05] MEDS: HYDROCODONE/APAP (5/325) TAB PO ×3 (05:19→18:24)
[2018-06-05] MEDS: MEROPENEM 1 GM/50ML(PMX) 50 ML IVPB ×3 (05:19→21:30)
[2018-06-05] MEDS: PANTOPRAZOLE (EC) 40 MG TAB PO (05:19)
[2018-06-05] MEDS: INSULIN ASPART [NOVOLOG] 3 ML PEN SC (07:50)
[2018-06-05] MEDS: AMLODIPINE 10 MG TAB PO (08:52)
[2018-06-05] MEDS: METOPROLOL (XL) 25 MG TAB PO ×2 (08:53→21:31)
[2018-06-06] MEDS: HYDROCODONE/APAP (5/325) TAB PO ×4 (00:24→18:20)
[2018-06-06] MEDS: PANTOPRAZOLE (EC) 40 MG TAB PO (07:47)
[2018-06-06] MEDS: INSULIN ASPART [NOVOLOG] 3 ML PEN SC (07:50)
[2018-06-06] MEDS: METOPROLOL (XL) 25 MG TAB PO ×2 (09:00→22:15)
[2018-06-06] MEDS: AMLODIPINE 10 MG TAB PO (09:00)
[2018-06-06] MEDS: HYDROmorphONE 2 MG TAB PO (14:26)
[2018-06-07] MEDS: HYDROCODONE/APAP (5/325) TAB PO ×4 (00:46→18:27)
[2018-06-07 05:14] LABS: WHITE BLOOD COUNT 7.5 10^3/ul (4.8-10.8)
[2018-06-07 05:14] LABS: ADD MAN DIFF? NO; BASOPHILS % 0.3 % (0.0-2.0); EOSINOPHILS # 0.5 10^3/ul (0.0-0.5); EOSINOPHILS % 6.2 % (0.0-7.0); HEMATOCRIT 30.4 % (42.0-52.0); HEMOGLOBIN 8.9 g/dl (14.0-18.0); LYMPHOCYTES # 1.4 10^3/ul (0.8-2.9); LYMPHOCYTES % 18.9 % (15.0-51.0); MEAN CORPUSCULAR HEMOGLOBIN 24.7 pg (29.0-33.0); MEAN CORPUSCULAR HGB CONC 29.3 g/dl (32.0-37.0); MEAN CORPUSCULAR VOLUME 84.2 fl (82.0-101.0); MEAN PLATELET VOLUME 9.5 fl (7.4-10.4); MONOCYTE # 0.6 10^3/ul (0.3-0.9); MONOCYTES % 7.5 % (0.0-11.0); NEUTROPHIL # 4.8 10^3/ul (1.6-7.5); NEUTROPHILS % 63.9 % (39.0-77.0); NUCLEATED RED BLOOD CELLS # 0.1 10^3/ul (0.0-0.0); NUCLEATED RED BLOOD CELLS% 0.9 /100WBC (0.0-0.0); PLATELET COUNT 255 10^3/UL (140-415); RED BLOOD COUNT 3.61 10^6/ul (4.70-6.10); RED CELL DISTRIBUTION WIDTH 19.2 % (11.5-14.5)
[2018-06-07] MEDS: PANTOPRAZOLE (EC) 40 MG TAB PO (05:46)
[2018-06-07 05:52] LABS: ANION GAP 9 (5-13); BLOOD UREA NITROGEN 30 mg/dl (7-20); CALCIUM 11.2 mg/dl (8.4-10.2); CARBON DIOXIDE 28 mmol/L (21-31); CHLORIDE 102 mmol/L (97-110); CREATININE 1.19 mg/dl (0.61-1.24); Estimated GFR > 60 mL/min (>60); GLUCOSE 125 mg/dl (70-220); POTASSIUM 3.8 mmol/L (3.5-5.1); SODIUM 139 mmol/L (135-144)
[2018-06-07] MEDS: METOPROLOL (XL) 25 MG TAB PO ×2 (09:07→20:53)
[2018-06-07] MEDS: AMLODIPINE 10 MG TAB PO (09:07)
[2018-06-07] MEDS: INSULIN ASPART [NOVOLOG] 3 ML PEN SC (09:09)
[2018-06-08 05:20] LABS: ADD MAN DIFF? NO
[2018-06-08 05:21] LABS: BASOPHILS % 0.3 % (0.0-2.0); EOSINOPHILS # 0.4 10^3/ul (0.0-0.5); EOSINOPHILS % 5.2 % (0.0-7.0); HEMATOCRIT 29.3 % (42.0-52.0); HEMOGLOBIN 8.7 g/dl (14.0-18.0); LYMPHOCYTES # 1.9 10^3/ul (0.8-2.9); LYMPHOCYTES % 23.6 % (15.0-51.0); MEAN CORPUSCULAR HGB CONC 29.7 g/dl (32.0-37.0); MEAN CORPUSCULAR VOLUME 84.2 fl (82.0-101.0); MEAN PLATELET VOLUME 9.2 fl (7.4-10.4); MONOCYTE # 0.8 10^3/ul (0.3-0.9); MONOCYTES % 9.6 % (0.0-11.0); NEUTROPHIL # 4.6 10^3/ul (1.6-7.5); NUCLEATED RED BLOOD CELLS # 0.1 10^3/ul (0.0-0.0); NUCLEATED RED BLOOD CELLS% 0.6 /100WBC (0.0-0.0); PLATELET COUNT 286 10^3/UL (140-415); RED BLOOD COUNT 3.48 10^6/ul (4.70-6.10); RED CELL DISTRIBUTION WIDTH 18.7 % (11.5-14.5)
[2018-06-08 05:21] LABS: WHITE BLOOD COUNT 7.9 10^3/ul (4.8-10.8)
[2018-06-08] MEDS: HYDROCODONE/APAP (5/325) TAB PO ×4 (05:22→18:22)
[2018-06-08] MEDS: PANTOPRAZOLE (EC) 40 MG TAB PO (05:22)
[2018-06-08 05:51] LABS: ANION GAP 7 (5-13); BLOOD UREA NITROGEN 33 mg/dl (7-20); CALCIUM 10.9 mg/dl (8.4-10.2); CARBON DIOXIDE 27 mmol/L (21-31); CHLORIDE 102 mmol/L (97-110); CREATININE 1.05 mg/dl (0.61-1.24); Estimated GFR > 60 mL/min (>60); GLUCOSE 104 mg/dl (70-220); POTASSIUM 4.1 mmol/L (3.5-5.1); SODIUM 136 mmol/L (135-144)
[2018-06-08] MEDS: INSULIN ASPART [NOVOLOG] 3 ML PEN SC (08:35)
[2018-06-08] MEDS: METOPROLOL (XL) 25 MG TAB PO ×2 (08:59→21:00)
[2018-06-08] MEDS: HYDROmorphONE 2 MG TAB PO (22:17)
[2018-06-09] MEDS: HYDROCODONE/APAP (5/325) TAB PO ×5 (01:08→23:52)
[2018-06-09 05:16] LABS: ADD MAN DIFF? NO
[2018-06-09 05:25] LABS: BASOPHILS % 0.5 % (0.0-2.0); EOSINOPHILS # 0.4 10^3/ul (0.0-0.5); EOSINOPHILS % 4.5 % (0.0-7.0); HEMATOCRIT 26.8 % (42.0-52.0); LYMPHOCYTES # 1.7 10^3/ul (0.8-2.9); MEAN CORPUSCULAR HEMOGLOBIN 25.2 pg (29.0-33.0); MEAN CORPUSCULAR HGB CONC 29.9 g/dl (32.0-37.0); MEAN CORPUSCULAR VOLUME 84.3 fl (82.0-101.0); MONOCYTE # 0.8 10^3/ul (0.3-0.9); MONOCYTES % 10.5 % (0.0-11.0); NEUTROPHIL # 4.7 10^3/ul (1.6-7.5); NEUTROPHILS % 59.8 % (39.0-77.0); NUCLEATED RED BLOOD CELLS% 0.5 /100WBC (0.0-0.0); PLATELET COUNT 290 10^3/UL (140-415); RED BLOOD COUNT 3.18 10^6/ul (4.70-6.10)
[2018-06-09 05:25] LABS: WHITE BLOOD COUNT 7.8 10^3/ul (4.8-10.8)
[2018-06-09 05:57] LABS: ANION GAP 8 (5-13); BLOOD UREA NITROGEN 25 mg/dl (7-20); CALCIUM 10.5 mg/dl (8.4-10.2); CARBON DIOXIDE 25 mmol/L (21-31); CHLORIDE 104 mmol/L (97-110); CREATININE 0.96 mg/dl (0.61-1.24); Estimated GFR > 60 mL/min (>60); GLUCOSE 122 mg/dl (70-220); POTASSIUM 3.8 mmol/L (3.5-5.1); SODIUM 137 mmol/L (135-144)
[2018-06-09] MEDS: PANTOPRAZOLE (EC) 40 MG TAB PO (06:08)
[2018-06-09] MEDS: [UNRECOGNIZED DRUG - REMARK] XX ×3 (06:30→22:30)
[2018-06-09] MEDS: INSULIN ASPART [NOVOLOG] 3 ML PEN SC (07:50)
[2018-06-09] MEDS: METOPROLOL (XL) 25 MG TAB PO ×2 (09:00→21:42)
[2018-06-09] MEDS: HYDROmorphONE 2 MG TAB PO (15:56)
[2018-06-10 05:13] LABS: ADD MAN DIFF? NO
[2018-06-10 05:17] LABS: BASOPHILS % 0.4 % (0.0-2.0); EOSINOPHILS # 0.2 10^3/ul (0.0-0.5); EOSINOPHILS % 2.9 % (0.0-7.0); HEMATOCRIT 27.7 % (42.0-52.0); HEMOGLOBIN 8.3 g/dl (14.0-18.0); LYMPHOCYTES # 1.3 10^3/ul (0.8-2.9); LYMPHOCYTES % 18.5 % (15.0-51.0); MEAN CORPUSCULAR HEMOGLOBIN 25.1 pg (29.0-33.0); MEAN CORPUSCULAR VOLUME 83.7 fl (82.0-101.0); MEAN PLATELET VOLUME 9.3 fl (7.4-10.4); MONOCYTE # 0.7 10^3/ul (0.3-0.9); NEUTROPHIL # 4.7 10^3/ul (1.6-7.5); NEUTROPHILS % 64.9 % (39.0-77.0); NUCLEATED RED BLOOD CELLS # 0.1 10^3/ul (0.0-0.0); NUCLEATED RED BLOOD CELLS% 0.7 /100WBC (0.0-0.0); PLATELET COUNT 337 10^3/UL (140-415); RED BLOOD COUNT 3.31 10^6/ul (4.70-6.10); RED CELL DISTRIBUTION WIDTH 18.8 % (11.5-14.5)
[2018-06-10 05:17] LABS: WHITE BLOOD COUNT 7.2 10^3/ul (4.8-10.8)
[2018-06-10 06:00] LABS: ANION GAP 9 (5-13); BLOOD UREA NITROGEN 24 mg/dl (7-20); CALCIUM 10.9 mg/dl (8.4-10.2); CARBON DIOXIDE 27 mmol/L (21-31); CHLORIDE 102 mmol/L (97-110); CREATININE 1.01 mg/dl (0.61-1.24); Estimated GFR > 60 mL/min (>60); GLUCOSE 131 mg/dl (70-220); POTASSIUM 3.9 mmol/L (3.5-5.1); SODIUM 138 mmol/L (135-144)
[2018-06-10] MEDS: HYDROCODONE/APAP (5/325) TAB PO ×3 (06:13→18:24)
[2018-06-10] MEDS: PANTOPRAZOLE (EC) 40 MG TAB PO (06:13)
[2018-06-10] MEDS: [UNRECOGNIZED DRUG - REMARK] XX ×3 (06:30→22:30)
[2018-06-10] MEDS: INSULIN ASPART [NOVOLOG] 3 ML PEN SC (07:50)
[2018-06-10] MEDS: METOPROLOL (XL) 25 MG TAB PO ×2 (08:42→21:40)
[2018-06-10] MEDS: HYDROmorphONE 2 MG TAB PO (10:18)
[2018-06-11] MEDS: HYDROCODONE/APAP (5/325) TAB PO ×4 (00:22→18:41)
[2018-06-11 05:21] LABS: ADD MAN DIFF? NO
[2018-06-11 05:31] LABS: WHITE BLOOD COUNT 6.9 10^3/ul (4.8-10.8)
[2018-06-11 05:31] LABS: BASOPHILS % 0.6 % (0.0-2.0); EOSINOPHILS # 0.2 10^3/ul (0.0-0.5); EOSINOPHILS % 3.3 % (0.0-7.0); HEMATOCRIT 27.6 % (42.0-52.0); HEMOGLOBIN 8.2 g/dl (14.0-18.0); LYMPHOCYTES # 1.3 10^3/ul (0.8-2.9); LYMPHOCYTES % 18.1 % (15.0-51.0); MEAN CORPUSCULAR HGB CONC 29.7 g/dl (32.0-37.0); MEAN CORPUSCULAR VOLUME 84.1 fl (82.0-101.0); MEAN PLATELET VOLUME 8.8 fl (7.4-10.4); MONOCYTE # 0.8 10^3/ul (0.3-0.9); NEUTROPHIL # 4.3 10^3/ul (1.6-7.5); NEUTROPHILS % 62.4 % (39.0-77.0); NUCLEATED RED BLOOD CELLS% 0.4 /100WBC (0.0-0.0); PLATELET COUNT 371 10^3/UL (140-415); RED BLOOD COUNT 3.28 10^6/ul (4.70-6.10); RED CELL DISTRIBUTION WIDTH 18.5 % (11.5-14.5)
[2018-06-11 05:58] LABS: ANION GAP 5 (5-13); BLOOD UREA NITROGEN 27 mg/dl (7-20); CALCIUM 11.2 mg/dl (8.4-10.2); CARBON DIOXIDE 29 mmol/L (21-31); CHLORIDE 102 mmol/L (97-110); CREATININE 1.11 mg/dl (0.61-1.24); Estimated GFR > 60 mL/min (>60); GLUCOSE 107 mg/dl (70-220); POTASSIUM 4.4 mmol/L (3.5-5.1); SODIUM 136 mmol/L (135-144)
[2018-06-11] MEDS: [UNRECOGNIZED DRUG - REMARK] XX ×3 (06:30→22:30)
[2018-06-11] MEDS: INSULIN ASPART [NOVOLOG] 3 ML PEN SC (07:50)
[2018-06-12] MEDS: HYDROCODONE/APAP (5/325) TAB PO ×4 (01:05→17:13)
[2018-06-12] MEDS: [UNRECOGNIZED DRUG - REMARK] XX ×2 (06:11→14:30)
[2018-06-12] MEDS: INSULIN ASPART [NOVOLOG] 3 ML PEN SC (07:50)
[2018-06-12 07:52] LABS: ADD MAN DIFF? NO
[2018-06-12 07:57] LABS: BASOPHILS % 0.3 % (0.0-2.0); EOSINOPHILS # 0.2 10^3/ul (0.0-0.5); HEMOGLOBIN 7.9 g/dl (14.0-18.0); LYMPHOCYTES # 1.2 10^3/ul (0.8-2.9); LYMPHOCYTES % 20.7 % (15.0-51.0); MEAN CORPUSCULAR HEMOGLOBIN 24.4 pg (29.0-33.0); MEAN CORPUSCULAR HGB CONC 29.3 g/dl (32.0-37.0); MEAN CORPUSCULAR VOLUME 83.3 fl (82.0-101.0); MEAN PLATELET VOLUME 8.8 fl (7.4-10.4); MONOCYTE # 0.8 10^3/ul (0.3-0.9); MONOCYTES % 13.2 % (0.0-11.0); NEUTROPHIL # 3.5 10^3/ul (1.6-7.5); NEUTROPHILS % 59.1 % (39.0-77.0); NUCLEATED RED BLOOD CELLS% 0.5 /100WBC (0.0-0.0); PLATELET COUNT 390 10^3/UL (140-415); RED BLOOD COUNT 3.24 10^6/ul (4.70-6.10); RED CELL DISTRIBUTION WIDTH 18.4 % (11.5-14.5)
[2018-06-12 07:57] LABS: WHITE BLOOD COUNT 5.9 10^3/ul (4.8-10.8)
[2018-06-12 08:20] LABS: ANION GAP 6 (5-13); BLOOD UREA NITROGEN 25 mg/dl (7-20); CALCIUM 11.9 mg/dl (8.4-10.2); CARBON DIOXIDE 29 mmol/L (21-31); CHLORIDE 102 mmol/L (97-110); CREATININE 1.15 mg/dl (0.61-1.24); Estimated GFR > 60 mL/min (>60); GLUCOSE 100 mg/dl (70-220); SODIUM 137 mmol/L (135-144)
[2018-06-13] MEDS: HYDROCODONE/APAP (5/325) TAB PO ×4 (00:25→18:17)
[2018-06-13] MEDS: PANTOPRAZOLE (EC) 40 MG TAB PO (06:09)
[2018-06-13] MEDS: INSULIN ASPART [NOVOLOG] 3 ML PEN SC (07:50)
[2018-06-13 17:07] LABS: ADD MAN DIFF? NO
[2018-06-13 17:10] LABS: WHITE BLOOD COUNT 6.4 10^3/ul (4.8-10.8)
[2018-06-13 17:10] LABS: ABNORMAL IP MESSAGE 1; BASOPHILS % 0.5 % (0.0-2.0); EOSINOPHILS # 0.1 10^3/ul (0.0-0.5); EOSINOPHILS % 2.2 % (0.0-7.0); HEMATOCRIT 27.6 % (42.0-52.0); HEMOGLOBIN 8.1 g/dl (14.0-18.0); LYMPHOCYTES % 15.2 % (15.0-51.0); MEAN CORPUSCULAR HEMOGLOBIN 24.5 pg (29.0-33.0); MEAN CORPUSCULAR HGB CONC 29.3 g/dl (32.0-37.0); MEAN CORPUSCULAR VOLUME 83.6 fl (82.0-101.0); MEAN PLATELET VOLUME 8.7 fl (7.4-10.4); MONOCYTE # 0.7 10^3/ul (0.3-0.9); MONOCYTES % 11.5 % (0.0-11.0); NEUTROPHIL # 4.2 10^3/ul (1.6-7.5); NEUTROPHILS % 65.3 % (39.0-77.0); NUCLEATED RED BLOOD CELLS # 0.1 10^3/ul (0.0-0.0); NUCLEATED RED BLOOD CELLS% 0.8 /100WBC (0.0-0.0); PLATELET COUNT 427 10^3/UL (140-415); POSITIVE DIFF @See below; RED CELL DISTRIBUTION WIDTH 18.4 % (11.5-14.5)
[2018-06-13 17:30] LABS: ALANINE AMINOTRANSFERASE 17 IU/L (13-69); ALBUMIN 2.9 g/dl (3.3-4.9); ALBUMIN/GLOBULIN RATIO 0.74; ALKALINE PHOSPHATASE 138 IU/L (42-121); ANION GAP 8 (5-13); ASPARTATE AMINO TRANSFERASE 18 IU/L (15-46); BILIRUBIN,INDIRECT 0.3 mg/dl (0-1.1); BILIRUBIN,TOTAL 0.3 mg/dl (0.2-1.3); BLOOD UREA NITROGEN 27 mg/dl (7-20); CALCIUM 11.4 mg/dl (8.4-10.2); CARBON DIOXIDE 26 mmol/L (21-31); CHLORIDE 103 mmol/L (97-110); CREATININE 1.28 mg/dl (0.61-1.24); Estimated GFR 57 mL/min (>60); GLUCOSE 101 mg/dl (70-220); POTASSIUM 4.3 mmol/L (3.5-5.1); SODIUM 137 mmol/L (135-144); TOTAL PROTEIN 6.8 g/dl (6.1-8.1)
[2018-06-13] MEDS: HYDROmorphONE 2 MG TAB PO (22:10)
[2018-06-14] MEDS: HYDROCODONE/APAP (5/325) TAB PO ×3 (00:15→12:18)
[2018-06-14 05:26] LABS: ADD MAN DIFF? NO
[2018-06-14 05:31] LABS: BASOPHILS % 0.6 % (0.0-2.0); EOSINOPHILS # 0.2 10^3/ul (0.0-0.5); EOSINOPHILS % 2.4 % (0.0-7.0); HEMATOCRIT 27.9 % (42.0-52.0); HEMOGLOBIN 8.3 g/dl (14.0-18.0); LYMPHOCYTES # 1.2 10^3/ul (0.8-2.9); LYMPHOCYTES % 17.1 % (15.0-51.0); MEAN CORPUSCULAR HEMOGLOBIN 24.7 pg (29.0-33.0); MEAN CORPUSCULAR HGB CONC 29.7 g/dl (32.0-37.0); MONOCYTES % 13.7 % (0.0-11.0); NEUTROPHIL # 4.4 10^3/ul (1.6-7.5); NEUTROPHILS % 61.3 % (39.0-77.0); NUCLEATED RED BLOOD CELLS% 0.6 /100WBC (0.0-0.0); PLATELET COUNT 431 10^3/UL (140-415); RED BLOOD COUNT 3.36 10^6/ul (4.70-6.10); RED CELL DISTRIBUTION WIDTH 18.2 % (11.5-14.5)
[2018-06-14 05:31] LABS: WHITE BLOOD COUNT 7.2 10^3/ul (4.8-10.8)
[2018-06-14] MEDS: PANTOPRAZOLE (EC) 40 MG TAB PO (05:45)
[2018-06-14 06:05] LABS: ALANINE AMINOTRANSFERASE 15 IU/L (13-69); ALBUMIN 2.8 g/dl (3.3-4.9); ALBUMIN/GLOBULIN RATIO 0.73; ALKALINE PHOSPHATASE 139 IU/L (42-121); ANION GAP 9 (5-13); ASPARTATE AMINO TRANSFERASE 17 IU/L (15-46); BILIRUBIN,INDIRECT 0.3 mg/dl (0-1.1); BILIRUBIN,TOTAL 0.3 mg/dl (0.2-1.3); BLOOD UREA NITROGEN 27 mg/dl (7-20); CALCIUM 11.5 mg/dl (8.4-10.2); CARBON DIOXIDE 26 mmol/L (21-31); CHLORIDE 104 mmol/L (97-110); CREATININE 1.15 mg/dl (0.61-1.24); Estimated GFR > 60 mL/min (>60); GLUCOSE 92 mg/dl (70-220); POTASSIUM 4.5 mmol/L (3.5-5.1); SODIUM 139 mmol/L (135-144); TOTAL PROTEIN 6.6 g/dl (6.1-8.1)
[2018-06-14] MEDS: INSULIN ASPART [NOVOLOG] 3 ML PEN SC (07:50)
[2018-06-14] MEDS: HYDROmorphONE 2 MG TAB PO (21:23)
[2018-06-15] MEDS: HYDROmorphONE 2 MG TAB PO ×3 (02:36→12:38)
[2018-06-15] MEDS: HYDROCODONE/APAP (5/325) TAB PO ×2 (04:32→17:24)
[2018-06-15] MEDS: PANTOPRAZOLE (EC) 40 MG TAB PO (06:17)
[2018-06-15] MEDS: INSULIN ASPART [NOVOLOG] 3 ML PEN SC (07:50)
[2018-06-16] MEDS: HYDROCODONE/APAP (5/325) TAB PO ×3 (00:56→20:21)
[2018-06-16] MEDS: PANTOPRAZOLE (EC) 40 MG TAB PO (05:46)
[2018-06-16] MEDS: HYDROmorphONE 2 MG TAB PO ×2 (05:47→14:36)
[2018-06-16] MEDS: INSULIN ASPART [NOVOLOG] 3 ML PEN SC (07:50)
[2018-06-17] MEDS: HYDROmorphONE 2 MG TAB PO (03:14)
[2018-06-17 05:15] LABS: ADD MAN DIFF? NO
[2018-06-17 05:20] LABS: BASOPHILS % 0.4 % (0.0-2.0); EOSINOPHILS # 0.3 10^3/ul (0.0-0.5); EOSINOPHILS % 3.3 % (0.0-7.0); HEMATOCRIT 28.3 % (42.0-52.0); HEMOGLOBIN 8.5 g/dl (14.0-18.0); LYMPHOCYTES # 1.3 10^3/ul (0.8-2.9); MEAN CORPUSCULAR VOLUME 83.2 fl (82.0-101.0); MEAN PLATELET VOLUME 8.8 fl (7.4-10.4); MONOCYTE # 1.1 10^3/ul (0.3-0.9); MONOCYTES % 11.3 % (0.0-11.0); NEUTROPHIL # 6.6 10^3/ul (1.6-7.5); NUCLEATED RED BLOOD CELLS% 0.4 /100WBC (0.0-0.0); PLATELET COUNT 420 10^3/UL (140-415); RED CELL DISTRIBUTION WIDTH 18.3 % (11.5-14.5)
[2018-06-17 05:20] LABS: WHITE BLOOD COUNT 9.9 10^3/ul (4.8-10.8)
[2018-06-17] MEDS: HYDROCODONE/APAP (5/325) TAB PO ×3 (05:58→20:22)
[2018-06-17] MEDS: PANTOPRAZOLE (EC) 40 MG TAB PO (05:59)
[2018-06-17 06:01] LABS: ANION GAP 9 (5-13); BLOOD UREA NITROGEN 28 mg/dl (7-20); CARBON DIOXIDE 26 mmol/L (21-31); CHLORIDE 101 mmol/L (97-110); CREATININE 1.08 mg/dl (0.61-1.24); Estimated GFR > 60 mL/min (>60); GLUCOSE 110 mg/dl (70-220); POTASSIUM 4.3 mmol/L (3.5-5.1); SODIUM 136 mmol/L (135-144)
[2018-06-17] MEDS: INSULIN ASPART [NOVOLOG] 3 ML PEN SC (07:50)
== END 2018-06-17 20:40 | DRG 28 ==
LOC: ICU 05-15 13:30 → MS1 05-16 18:22
PROC: 0WJH0ZZ Inspection of Retroperitoneum, Open Approach (ICD-10-PCS; 2018-05-13 07:30)
PROC: 0SG10J1 Fusion of 2 or more Lumbar Vertebral Joints with Synthetic Substitute, Posterior Approach, Posterior Column, Open Approach (ICD-10-PCS; principal; 2018-05-13 07:53)
PROC: 0SG30J1 Fusion of Lumbosacral Joint with Synthetic Substitute, Posterior Approach, Posterior Column, Open Approach (ICD-10-PCS; 2018-05-13 07:53)
PROC: 0QB00ZX Excision of Lumbar Vertebra, Open Approach, Diagnostic (ICD-10-PCS; 2018-05-13 07:53)
PROC: 30233N1 Transfusion of Nonautologous Red Blood Cells into Peripheral Vein, Percutaneous Approach (ICD-10-PCS; 2018-05-13 07:53)
DX: G95.29 Other cord compression (principal); A41.9 Sepsis, unspecified organism; T83.518A Infection and inflammatory reaction due to other urinary catheter, initial encounter; N12 Tubulo-interstitial nephritis, not specified as acute or chronic; C79.51 Secondary malignant neoplasm of bone; C78.7 Secondary malignant neoplasm of liver and intrahepatic bile duct; N17.9 Acute kidney failure, unspecified; D62 Acute posthemorrhagic anemia; M48.061 Spinal stenosis, lumbar region without neurogenic claudication; M48.07 Spinal stenosis, lumbosacral region; M89.8X8 Other specified disorders of bone, other site; G89.3 Neoplasm related pain (acute) (chronic); C67.9 Malignant neoplasm of bladder, unspecified; Z96.0 Presence of urogenital implants; I12.9 Hypertensive chronic kidney disease with stage 1 through stage 4 chronic kidney disease, or unspecified chronic kidney disease; N18.9 Chronic kidney disease, unspecified; R31.9 Hematuria, unspecified; D63.1 Anemia in chronic kidney disease; D63.0 Anemia in neoplastic disease; I95.9 Hypotension, unspecified; Z53.09 Procedure and treatment not carried out because of other contraindication; D72.829 Elevated white blood cell count, unspecified; R73.9 Hyperglycemia, unspecified; B96.5 Pseudomonas (aeruginosa) (mallei) (pseudomallei) as the cause of diseases classified elsewhere; B95.2 Enterococcus as the cause of diseases classified elsewhere; B96.20 Unspecified Escherichia coli [E. coli] as the cause of diseases classified elsewhere; Z16.12 Extended spectrum beta lactamase (ESBL) resistance
CPT/HCPCS: 36430; 71045; 72100; 72131; 74019; 76775; 80048; 80053; 80202; 81001; 81003; 82270; 82550; 82570; 82962; 83036; 84300; 84560; 85014; 85018; 85025; 85610; 85730; 86850; 86900; 86901; 86920; 87081; 87086; 88304; 88311; 88341; 88342; 89190; 93005; 93306; 97110; 97116; 97162; 97166; 97530; 97535